=== PATIENT | female | born 1950 | race Caucasian/White ===

== ENCOUNTER → 2017-09-22 | Outpatient (CLI) | payer MEDICARE ==
[~2017-09-22] MED LIST: AMLO5TAB2 PO; BISO10TA5 PO; COMMODE 3-IN-11 MIS; ESLI1TAB4 PO; HYDR-3580 PO; LEVA500T33 PO; LEVE500T8 PO; MULT-65 PO; OMEP20TA93 PO; RAMI10CA PO; SIMV20TA PO; WALKER WHEELS/F1 MIS; XARE10TA PO
[2017-09-22 09:07] LABS: AUTOMATED NEUTROPHIL # 1.5 TH/MM3 (1.8-7.7); BASOPHIL % 0.7 % (0.0-2.0); EOSINOPHIL # 0.1 TH/MM3 (0-0.4); EOSINOPHIL % 1.3 % (0.0-4.0); HEMATOCRIT 37.2 % (35.0-46.0); HEMO FLAGS DIFF FINAL; LYMPH % 48.1 % (9.0-44.0); LYMPHOCYTE # 1.8 TH/MM3 (1.0-4.8); MEAN CELL VOLUME 107.8 FL (80.0-100.0); MEAN CORPUSCULAR HEMOGLOBIN 37.8 PG (27.0-34.0); MEAN CORPUSCULAR HGB CONC 35.1 % (32.0-36.0); MONO % 10.6 % (0.0-8.0); NEUT % 39.3 % (16.0-70.0); PLATELET COUNT 211 TH/MM3 (150-450); RED BLOOD COUNT 3.45 MIL/MM3 (4.00-5.30); RED CELL DISTRIBUTION WIDTH 12.8 % (11.6-17.2); WHITE BLOOD COUNT 3.8 TH/MM3 (4.0-11.0)
[2017-09-22 09:17] LABS: APTT (PATIENT) 24.3 SEC (24.3-30.1); INTERNATIONAL NORMALIZED RATIO 0.9 RATIO; PROTHROMBIN TIME - PATIENT 10.1 SEC (9.8-11.6)
[2017-09-22 09:53] LABS: BICARBONATE 24.9 MEQ/L (21.0-32.0)
[2017-09-22 10:01] LABS: POTASSIUM 4.7 MEQ/L (3.5-5.1)
[2017-09-22 10:54] LABS: BLOOD, URINE NEG (NEG); GLUCOSE,URINE NEG (NEG); KETONE, URINE NEG (NEG); NITRITE,URINE NEG (NEG); URINE COLOR LIGHT-YELLOW (YELLW/STRAW)
[2017-09-22 10:55] LABS: COMMENT (UR) CATH-CULT NOT IND; CULTURE IF INDICATED CATH CULTURE NOT IND
== END ==
LOC: CPRE 08:36
PROVIDERS: ATTEND Orthopaedic Surgery Orthopaedic Surgery of the Spine
DX: Z01.812 Encounter for preprocedural laboratory examination (principal); Z79.01 Long term (current) use of anticoagulants; M16.11 Unilateral primary osteoarthritis, right hip
CPT/HCPCS: 36415; 80048; 81001; 85025; 85610; 85730

== ENCOUNTER 2017-10-03 05:36 | Inpatient (IN) | payer MEDICARE ==
[~2017-10-03] VITALS: Ht 163.8 cm; Wt 76.8 kg
[~2017-10-03 05:36] MED LIST changes: -COMMODE 3-IN-11 MIS; -HYDR-3580 PO; -MULT-65 PO; -WALKER WHEELS/F1 MIS; -XARE10TA PO
[2017-10-03] MEDS ORDERED: METOPROLOL TARTRATE 25 MG TAB PO PRN (06:00)
[2017-10-03] MEDS ORDERED: POVIDONE IODINE 5% (ANTISEPSIS KIT) 4 APPLICATIONS EACH NARE PRN (06:00)
[2017-10-03] MEDS ORDERED: SODIUM CHLORID 0.9% 500 ML IV PRN (06:00)
[2017-10-03] MEDS ORDERED: LACTATED RINGER'S 1000 ML IV PRN (06:00)
[2017-10-03] MEDS ORDERED: CHLORHEXIDINE GLUCONATE 2 % 1 PACK (2 CLOTHS) TOPICAL PRN (06:00)
[2017-10-03] MEDS ORDERED: GENTAMICIN SULFATE 80 MG/2 ML VIAL ONE (06:09)
[2017-10-03] MEDS ORDERED: POVIDONE IODINE 7.5% SCRUB 118 ML BOTTLE TOPICAL SCH (06:15)
[2017-10-03] MEDS ORDERED: MULT-65 PO (06:15)
[2017-10-03] MEDS: VANCOMYCIN 1000 MG/NS 250 ML (for <70 kg) IV SCH ×4 (06:31→07:00)
[2017-10-03] MEDS: ceFAZolin 2 GM PREMIX 50 ML IV SCH ×2 (07:30→07:53)
[2017-10-03] MEDS: TRANEXAMIC ACID INJ 768 MG in SODIUM CHLORIDE 0.9% INJ 100 ML IV SCH ×2 (07:42→07:53)
[2017-10-03] MEDS: EXPAREL PERI-ARTICULAR INJECTION (TOTAL VOL. 60 ML) P-ARTICULR SCH ×4 (07:53→08:00)
--- NOTE | 2017-10-03 09:29 | PD.OP ---
cc: Jordan Aragon MD Operative Report Date of Surgery: Oct 03, 2017 Preoperative Diagnosis: Osteoarthritis right hip Postoperative Diagnosis: Same Procedure: Right total hip replacement arthroplasty, direct anterior exposure Anesthesia: Gen. Surgeon: Jordan Aragon Driver License Agent(s): CHINO Gandara Operation and Findings: EBL: 300 cc INDICATION: This patient presents with significant hip pain related to osteoarthritis of the right hip. Despite extensive conservative care this patient continues to be painful and now presents for surgical treatment. NOTE: Sita Gandara PA-C was present for the entire surgical procedure as my nutrition services assistant. In my medical opinion her skill and care was necessary for the proper management of this patient. COMPONENTS: COMPANY: [employer] CUP: [place], 56 mm, 100 series, gription surface LINER: Altrx 36, neutral STEM: [place], size 11, standard offset, hydroxyapatite-coated HEAD: 36, -2, metal, 12/14 taper PROCEDURE: This patient was brought to the operating room and anesthetized in the supine position and positioned on the fracture table with both legs held extended. The right hip and leg was scrubbed with alcohol followed by Hibiclens followed by ChloraPrep and draped sterilely. Antibiotics were given within routine time window and a timeout was done. A 4 inch incision was made starting 2 cm distal and 2 cm lateral to the anterior superior iliac spine. The fascia sebastian was opened longitudinally. The interval between the fascia sebastian and the rectus was opened down to the capsule of the hip joint. Retractors were positioned allowing good visualization of the capsule. This was opened longitudinally and flaps were created. Stay sutures were utilized. Exposure was excellent. The neck was cut at the proper location using fluoroscopy as a guide. The head was removed. Deep retractors were positioned allowing good visualization of the acetabulum. Acetabulum was deepened down to the floor starting with a proper size reamer and reaming up to 55 mm. A trial was utilized. Fluoroscopy was used to check position and confirmed satisfactory alignment. The rim was reamed with a 56 mm reamer and the final cup was positioned in approximately 20 of anteversion and 40-45 of abduction. Position was satisfactory. A single hole eliminator was positioned followed by the final liner. The lifting hook was utilized. The leg was dropped to the floor, maximally externally rotated and brought across the midline. Retractors were positioned. A box osteotome was utilized followed by progressive broaching to the proper stem size. Trial reduction showed excellent alignment and fit. With 60 of external rotation the leg was dropped to the floor without evidence of anterior subluxation. The wound was irrigated. The final stem was inserted and was found to be very stable. The final reduction using the final head. Stability was as previously noted. Intraoperative x-rays were taken. The wound was irrigated copiously. Hemostasis was controlled. Local anesthesia was utilized. The capsule was repaired with #2 Tycron sutures. The fascia sebastian was repaired with running 0 PDS on a loop. Subcutaneous tissue was approximated with 2-0 Vicryl and skin with running intradermal 3-0 Vicryl followed by Steri-Strips. A sterile dressing was applied. The patient was awakened and taken to the recovery room in satisfactory condition. FINDINGS: There was severe osteoarthritis of the right hip. There was a loose body within the acetabulum. The canal was a champagne flute type canal. We reamed distally with a flexible reamer to 11 mm allowing the size 11 stem to be placed in the proper location. Stability appeared to be excellent. There was no complication that was appreciated. Jordan Aragon MD Oct 03, 2017 09:29
[2017-10-03] MEDS ORDERED: ACETAMINOPHEN/HYDROcodone 325 MG/7.5 MG TAB PO PRN (09:30)
[2017-10-03] MEDS ORDERED: MISCELLANEOUS NURSING INFORMATION XX PRN (09:30)
[2017-10-03] MEDS ORDERED: SODIUM CHLORIDE 0.9% FLUSH 5 ML FLUSH IVF PRN (09:30)
[2017-10-03] MEDS ORDERED: Post-op Orders (for Pharmacy) MISC XX ONE (09:30)
[2017-10-03] MEDS ORDERED: MORPHINE SULFATE 8 MG/ML INJ IM PRN (09:30)
[2017-10-03] MEDS ORDERED: MORPHINE SULFATE 30 MG/30 ML PCA IV SCH (09:30)
[2017-10-03] MEDS ORDERED: NALOXONE HCL 0.4 MG/ML AMP IV PUSH PRN (09:30)
[2017-10-03] MEDS ORDERED: MISCELLANEOUS PHARMACY INFORMATION XX ONE (09:30)
[2017-10-03] MEDS ORDERED: HYDR-3580 PO (09:31)
[2017-10-03] MEDS ORDERED: XARE10TA PO (09:31)
[2017-10-03] MEDS ORDERED: DO NOT ADM ANY ANTICOAGULANT DRUGS PRN (09:33)
[2017-10-03] MEDS: LACTATED RINGER'S 1000 ML INJ 1,000 ML IV SCH (09:55)
[2017-10-03 12:00] VITALS: BP 129/66; PULSE 68; RESP 16; TEMP 96.6; O2SAT 100
[2017-10-03 15:45] VITALS: BP 94/60; PULSE 79; RESP 15; TEMP 97.5; O2SAT 100
[2017-10-03] MEDS: PCA - TOTAL MG MORPHINE DELIVERED PER SHIFT SCH ×2 (16:00→22:00)
--- NOTE | 2017-10-03 16:37 | RADRPT ---
EXAM DATE/TIME: 10/03/2017 07:59 [facility] COMPARISON: No previous studies available for comparison. INDICATIONS : Right anterior hip replacement. MEDICAL HISTORY : Hypertension. Gastroesophageal reflux disease. SURGICAL HISTORY : Hysterectomy. Left middle lobectomy. ENCOUNTER: Initial ACUITY: 1 day PAIN SCORE: Non-responsive. LOCATION: Right anterior hip. FINDINGS: A two view examination of the right hip was performed. The patient had a right total hip arthroplasty in good position.. CONCLUSION: Status post right total hip arthroplasty Keny David MD on October 03, 2017 at 16:35 Board Certified Radiologist. This report was verified electronically.
[2017-10-03 19:05] VITALS: BP 101/60; PULSE 71; RESP 16; TEMP 96.9; O2SAT 100
[2017-10-03 19:51] VITALS: O2SAT 100
[2017-10-03] MEDS ORDERED: WALKER WHEELS/F1 MIS (19:55)
[2017-10-03] MEDS ORDERED: COMMODE 3-IN-11 MIS (19:56)
--- NOTE | 2017-10-03 19:56 | HHI.DCPOC ---
Discharge Care Plan Diagnosis: (1) Osteoarthritis of right hip Your Health Problems Are: Incision/Drains Swelling Goals to Promote Your Health * To prevent worsening of your condition and complications * To maintain your health at the optimal level Directions to Meet Your Goals Take your medications as prescribed Follow your dietary instruction Follow activity as directed Keep your appointments as scheduled Take your immunizations and boosters as scheduled If your symptoms worsen call your PCP, if no PCP go to Urgent Care Center or Emergency Room Smoking is Dangerous to Your Health. Avoid second hand smoke Call the 24-hour hour crisis hotline for domestic abuse at Sita Gandara Oct 03, 2017 19:56
[2017-10-03] MEDS: amLODIPine BESYLATE 5 MG TAB PO SCH (19:57)
--- NOTE | 2017-10-03 19:58 | HHI.FF ---
Face to Face Verification Diagnosis: (1) Osteoarthritis of right hip Physical Therapy Gait training, Safety evaluation, Transfer training, bed to chair Hip: Total hip, Protocol: Right, Progress to weight bearing Right LE Weight Bearing: WB as tolerated Additional Instructions PT 4 days/wk for 2 weeks. WBAT RLE. Right JOANNE, anterior protocol. Gait training. Nursing RN Days per Week: 2 x Week(s): 1 Dressing Changes: Do not change dressing Additional Instructions Vitals assessment. Dressing assessment - do not change unless saturated or erythema I have seen patient Elisabeth Trujillo on 10/03/17. My clinical findings support the need for the requested home health care services because: Limited ability to care for self High risk of falls I certify that my clinical findings support that this patient is homebound because: Post-op weakness Unsteady gait/balance Sita Gandara Oct 03, 2017 19:58
--- NOTE | 2017-10-03 19:59 | HHI.DS ---
Discharge Summary Admission Date Oct 03, 2017 at 05:36 Discharge Date: Oct 06, 2017 Admitting Diagnosis see below Diagnosis: (1) Osteoarthritis of right hip Diagnosis: Principal ICD Codes: M16.11 - Unilateral primary osteoarthritis, right hip Procedures Right total hip arthroplasty, direct anterior approach Brief History This is a 67 year old female patient with a long-standing history of right hip pain for 8-10 years. She had 2 intra-articular steroid injections 7-8 years ago. The first was very helpful but the second wore off quickly. It was proposed she pursue surgical treatment at that time but she declined. She continue with conservative care including ice, heat, use of ibuprofen and biofreeze. Updated imaging studies were performed earlier this year as her function was declining. She attempted use of prescription diclofenac and physical therapy but her relief was short-lived. Surgical treatment was recommended in the form of right total hip arthroplasty. She agreed and now presents for the above. Hospital Course Surgical treatment was performed on the day of admission without complication. She recovered well in PACU and was transferred to the orthopaedic floor. Pain was controlled with IV and oral medications. DVT prophylaxis was initiated pod# 1. She was compliant with physical therapy and all JOANNE precautions. After 3 days she was found to be medically stable and discharged home with home health care. She was instructed to pursue a high fiber diet, to continue her therapy, to take her prescription medications as directed. She was given xarelto 10mg and Ruth 7.5mg. Pt Condition on Discharge: Stable Discharge Disposition: Disch w/ Home Health Serv Discharge Instructions Diet Instructions: As Tolerated, No Restrictions, High Fiber Diet Activities You Can Perform: Weight Bearing as [place]ima Activities to Avoid: Strenuous Activity Additional Activity Instruc.: Right JOANNE, direct anterior approach New Medications: Commode 3-in-1 (Commode 3-in-1) 1 Mis Mis EA .ROUTE DIRECTED, #1 0 Refills Walker with Front Wheels (Walker with Front Wheels) 1 Mis Mis EA .ROUTE DIRECTED, #1 0 Refills Hydrocodone/Acetaminophen (Hydrocodone-Acetamin 7.5-325) 7.5 Mg-325 Mg Tablet 1 TAB PO Q4H PRN for PAIN, #50 TAB Rivaroxaban (Xarelto) 10 Mg Tab 10 MG PO Q24H for Prevent Blood Clot, #25 TAB Continued Medications: Amlodipine (Amlodipine) 5 Mg Tab 5 MG PO HS for Blood Pressure Management, #30 TAB 0 Refills Bisoprolol (Bisoprolol) 10 Mg Tab 10 MG PO DAILY for Blood Pressure Management, #30 TAB 0 Refills Eslicarbazepine (Aptiom) 800 Mg Tab 800 MG PO DAILY for Control Seizures, #30 TAB 0 Refills Levetiracetam (Levetiracetam) 500 Mg Tab 1000 MG PO BID for Control Seizures, #60 TAB 0 Refills Levofloxacin (Levaquin) 500 Mg Tablet 500 MG PO DAILY for Infection, TAB 0 Refills Multiple Vitamin (Multi-Vitamin Daily) 1 Tab Tab 1 TAB PO DAILY for Nutritional Supplement, TAB 0 Refills Omeprazole (Omeprazole) 20 Mg Tab 20 MG PO DAILY, #30 TAB 0 Refills Ramipril (Ramipril) 10 Mg Cap 10 MG PO HS, #30 CAP 0 Refills Ramipril (Ramipril) 10 Mg Cap 10 MG PO PRN for SBP>160, DBP>90, #30 CAP 0 Refills Simvastatin (Simvastatin) 20 Mg Tab 30 MG PO HS for Cholesterol Management, #30 TAB 0 Refills Sita Gandara Oct 03, 2017 19:59
[2017-10-03] MEDS: PRAVASTATIN SOD 80 MG TAB PO SCH (20:04)
[2017-10-03] MEDS: RAMIPRIL 5 MG CAP PO SCH (20:04)
[2017-10-03] MEDS: levETIRAcetam 500 MG TAB PO SCH (20:04)
[2017-10-03] MEDS: MAGNESIUM HYDROXIDE SUSP 30 ML CUP PO SCH (20:04)
[2017-10-03] MEDS: SODIUM CHLORIDE 0.9% FLUSH 5 ML FLUSH IVF SCH (20:04)
[2017-10-03] MEDS: SENNOSIDES 8.6 MG TAB PO SCH (20:04)
[2017-10-04] VITALS (8 sets, daily range): BP systolic 90–121; BP diastolic 58–66; PULSE 80–108; RESP 17–20; TEMP 97.6–98.9; O2SAT 95–97
[2017-10-04 05:34] LABS: HEMATOCRIT 26.6 % (35.0-46.0); REVIEW FLAG FINAL
[2017-10-04] MEDS: LACTATED RINGER'S 1000 ML INJ 1,000 ML IV SCH ×3 (05:50→22:00)
[2017-10-04] MEDS: PCA - TOTAL MG MORPHINE DELIVERED PER SHIFT SCH (06:00)
[2017-10-04] MEDS: RIVAROXABAN 10 MG TAB PO SCH (08:30)
[2017-10-04] MEDS ORDERED: APTIOM 800 MG PO SCH (09:00)
[2017-10-04] MEDS ORDERED: BISOPROLOL 10 MG PO SCH (09:00)
[2017-10-04] MEDS: PANTOPRAZOLE SOD 20 MG DELAYED RELEASE TAB PO SCH (09:00)
[2017-10-04] MEDS: MAGNESIUM HYDROXIDE SUSP 30 ML CUP PO SCH ×2 (09:00→21:50)
[2017-10-04] MEDS: SODIUM CHLORIDE 0.9% FLUSH 5 ML FLUSH IVF SCH ×2 (09:00→21:00)
[2017-10-04] MEDS: levETIRAcetam 500 MG TAB PO SCH ×2 (09:00→21:50)
[2017-10-04] MEDS: ACETAMINOPHEN/HYDROcodone 325 MG/7.5 MG TAB PO PRN ×3 (10:50→21:56)
--- NOTE | 2017-10-04 12:44 | PD.ORT.PN ---
Subjective Subjective Remarks Moderate pain. Decreased blood pressure when on IV morphine. Lying in bed, comfortable. at bedside Objective Vitals Vital Signs Date Time Temp Pulse Resp B/P (MAP) Pulse Ox O2 Delivery O2 Flow Rate FiO2 10/04/17 11:49 98.8 108 18 109/66 (80) 97 10/04/17 08:19 95 Nasal Cannula 2.00 10/04/17 07:39 98.6 81 18 90/66 (74) 96 10/04/17 06:00 18 10/04/17 03:54 98.6 80 20 105/62 (76) 96 10/04/17 00:28 97.6 82 19 105/64 (78) 96 10/03/17 22:00 17 10/03/17 19:51 100 10/03/17 19:05 96.9 71 16 101/60 (74) 100 10/03/17 15:45 97.5 79 15 94/60 (71) 100 I/O 10/03/17 10/03/17 10/03/17 10/04/17 10/04/17 10/04/17 07:00 15:00 23:00 07:00 15:00 23:00 Intake Total 1586 ml 520 ml Output Total 3650 ml 400 ml Balance -2064 ml 120 ml Intake Oral 420 ml IV Total 1586 ml 100 ml Output Urine Total 450 ml 400 ml Estimated Blood Loss 200 ml Other 3000 ml # Bowel Movements 0 Result Diagram: 10/04/17 0445 Procedures Right total hip arthroplasty, direct anterior approach Objective Remarks Moderate pain with range of motion. Dressing is dry. Mild swelling. tenderness. Negative Homans sign Assessment & Plan Problem List: (1) Osteoarthritis of right hip ICD Codes: M16.11 - Unilateral primary osteoarthritis, right hip Qualifiers: Qualified Codes: M16.11 - Unilateral primary osteoarthritis, right hip Assessment and Plan Osteoarthritis right hip. Right JOANNE, direct anterior: POD #1. Plan: Weightbearing as tolerated. No dressing change. Xarelto for 25 days. [place] for pain. Discontinue PERSONAL FINANCIAL COUNSELOR. Probable discharge to home on . Prescriptions written. Home healthcare /home PT. 3007 form filled out in case she has to go to SNF. Jordan Aragon MD Oct 04, 2017 12:44
[2017-10-04] MEDS: RAMIPRIL 5 MG CAP PO SCH (21:00)
[2017-10-04] MEDS: amLODIPine BESYLATE 5 MG TAB PO SCH (21:00)
[2017-10-04] MEDS: PRAVASTATIN SOD 80 MG TAB PO SCH (21:50)
[2017-10-04] MEDS: SENNOSIDES 8.6 MG TAB PO SCH (21:50)
[2017-10-05] VITALS (7 sets, daily range): BP systolic 91–130; BP diastolic 60–79; PULSE 83–97; RESP 16–18; TEMP 98.5–100; O2SAT 93–98
[2017-10-05] MEDS: ACETAMINOPHEN/HYDROcodone 325 MG/7.5 MG TAB PO PRN ×5 (05:00→23:18)
[2017-10-05] MEDS: levETIRAcetam 500 MG TAB PO SCH ×2 (08:03→19:45)
[2017-10-05] MEDS: MAGNESIUM HYDROXIDE SUSP 30 ML CUP PO SCH ×2 (08:03→19:47)
[2017-10-05] MEDS: RIVAROXABAN 10 MG TAB PO SCH (08:03)
[2017-10-05] MEDS: PANTOPRAZOLE SOD 20 MG DELAYED RELEASE TAB PO SCH (08:03)
[2017-10-05] MEDS: SODIUM CHLORIDE 0.9% FLUSH 5 ML FLUSH IVF SCH ×2 (08:04→19:47)
--- NOTE | 2017-10-05 09:57 | PD.ORT.PN ---
Subjective Subjective Remarks no CP/SOB. no issues. Participating in PT Objective Vitals Vital Signs Date Time Temp Pulse Resp B/P (MAP) Pulse Ox O2 Delivery O2 Flow Rate FiO2 10/05/17 04:00 100.0 83 18 124/60 (81) 98 10/04/17 23:50 98.2 89 17 117/66 (83) 95 10/04/17 19:17 98.9 83 17 115/58 (77) 97 10/04/17 16:23 16 10/04/17 15:52 98.7 106 18 121/61 (81) 96 10/04/17 11:49 98.8 108 18 109/66 (80) 97 I/O 10/04/17 10/04/17 10/04/17 10/05/17 10/05/17 10/05/17 07:00 15:00 23:00 07:00 15:00 23:00 Intake Total 520 ml 360 ml 360 ml Output Total 400 ml Balance 120 ml 360 ml 360 ml Intake Oral 420 ml 360 ml 360 ml IV Total 100 ml Output Urine Total 400 ml # Voids 1 1 # Bowel Movements 0 0 0 Result Diagram: 10/04/17 0445 Procedures Right total hip arthroplasty, direct anterior approach Objective Remarks Moderate pain with range of motion. Dressing is dry. Mild swelling. tenderness. Negative Homans sign Assessment & Plan Problem List: (1) Osteoarthritis of right hip ICD Codes: M16.11 - Unilateral primary osteoarthritis, right hip Qualifiers: Qualified Codes: M16.11 - Unilateral primary osteoarthritis, right hip Assessment and Plan Osteoarthritis right hip. Right JOANNE, direct anterior: POD #2 doing well. up with PT Weightbearing as tolerated. No dressing change. Xarelto for 25 days. [place] for pain. Probable discharge to home on . Prescriptions written. Home healthcare /home PT. 3008 form filled out in case she has to go to SNF. Mauricio Stover Jr., MD Oct 05, 2017 09:57
[2017-10-05] MEDS: LACTATED RINGER'S 1000 ML INJ 1,000 ML IV SCH (12:00)
[2017-10-05] MEDS ORDERED: BISACODYL 10 MG SUPP RECTAL PRN (17:15)
[2017-10-05] MEDS: PRAVASTATIN SOD 80 MG TAB PO SCH (19:45)
[2017-10-05] MEDS: RAMIPRIL 5 MG CAP PO SCH (19:47)
[2017-10-05] MEDS: amLODIPine BESYLATE 5 MG TAB PO SCH (19:47)
[2017-10-05] MEDS: SENNOSIDES 8.6 MG TAB PO SCH (19:47)
[2017-10-06 00:02] VITALS: BP 122/69; PULSE 94; RESP 16; TEMP 99.7; O2SAT 97
[2017-10-06] MEDS: LACTATED RINGER'S 1000 ML INJ 1,000 ML IV SCH (00:30)
[2017-10-06] MEDS: ACETAMINOPHEN/HYDROcodone 325 MG/7.5 MG TAB PO PRN ×2 (05:08→09:00)
[2017-10-06 08:00] VITALS: BP 113/74; PULSE 86; RESP 18; TEMP 98.5; O2SAT 95
[2017-10-06] MEDS: MAGNESIUM HYDROXIDE SUSP 30 ML CUP PO SCH (09:00)
[2017-10-06] MEDS: SODIUM CHLORIDE 0.9% FLUSH 5 ML FLUSH IVF SCH (09:00)
[2017-10-06] MEDS: RIVAROXABAN 10 MG TAB PO SCH (09:01)
[2017-10-06] MEDS: PANTOPRAZOLE SOD 20 MG DELAYED RELEASE TAB PO SCH (09:01)
[2017-10-06] MEDS: levETIRAcetam 500 MG TAB PO SCH (09:01)
== END 2017-10-06 11:25 | disposition home health service (06) | DRG 470 ==
LOC: HSDI 05:36 → EDUNIT# 07:30 → N06B 11:16
PROVIDERS: ADMIT Orthopaedic Surgery Orthopaedic Surgery of the Spine; ATTEND Orthopaedic Surgery Orthopaedic Surgery of the Spine
PROC: 0SR902A Replacement of Right Hip Joint with Metal on Polyethylene Synthetic Substitute, Uncemented, Open Approach (ICD-10-PCS; principal; 2017-10-03 07:13)
DX: M16.11 Unilateral primary osteoarthritis, right hip (principal); I10 Essential (primary) hypertension; K21.9 Gastro-esophageal reflux disease without esophagitis; M81.0 Age-related osteoporosis without current pathological fracture; E78.5 Hyperlipidemia, unspecified; Z87.891 Personal history of nicotine dependence
CPT/HCPCS: 73502; 76000; 85014; 85018; 86850; 86900; 86901; 86920; 94150; C1776; C9290; J0690; J1580; J2270; J3370; J7050; J7120

== ENCOUNTER 2017-10-25 15:33 | Emergency (ER) | payer MEDICARE ==
[~2017-10-25 15:33] MED LIST changes: +COMMODE 3-IN-11 MIS; +HYDR-3580 PO; +MULT-65 PO; +WALKER WHEELS/F1 MIS; +XARE10TA PO
[2017-10-25 15:35] VITALS: BP 190/92; PULSE 102; RESP 22; TEMP 98.9; O2SAT 100
--- NOTE | 2017-10-25 16:03 | PD ---
HPI Chief Complaint: Musculoskeletal Complaint Time Seen by Provider: 16:00 Travel History International Travel<30 days: No Contact w/Intl Traveler<30days: No Traveled to known affect area: No History of Present Illness HPI 67 YO F with PMH of sacroiliitis and total hip replacement Oct [address] Li presents to the ED for evaluation of 10/10 pain over the sacral area. Patient describes the pain as the size of a tennis ball that radiates to the size of an orange. It is worsened by certain motions. She denies numbness, tingling, weakness, limitations to range of motion of the extremities, saddle anesthesia, fecal/urinary incontinence. She states that the pain became worse after a physical therapy session today. She's been treating with 10 mg [place] with no improvement of symptoms. 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) Thyroid Disease: No Past Surgical History Abdominal Surgery: Yes (hysterectomy) AICD: No Cardiac Surgery: No Ear Surgery: No Endocrine Surgery: No Eye Surgery: No Genitourinary Surgery: Yes (urethra stretch-frequent) Gynecologic Surgery: Yes (hysterectomy) Joint Replacement: No Oral Surgery: Yes (DENTAL IMPLANTS) Pacemaker: No Thoracic Surgery: Yes (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, bxs) Social History Tobacco Use: No Substance Use: No Allergies-Medications (Allergen,Severity, Reaction): Coded Allergies: bee venom protein (honey bee) (Verified Allergy, Severe, swelling, ) lacosamide (Verified Allergy, Severe, Shortness of Breath, 10/25/17) petechia and congestion lamotrigine (Verified Allergy, Severe, Shortness of Breath, 10/25/17) petechia and congestion Reported Meds & Prescriptions Reported Meds & Active Scripts Active Flexeril (Cyclobenzaprine HCl) 10 Mg Tab 10 Mg PO TID Xarelto (Rivaroxaban) 10 Mg Tab 10 Mg PO Q24H Reported Hydrocodone-Acetaminophen 10-325 mg Tab 1 Tab PO Q6H PRN Simvastatin 20 Mg Tab 20 Mg PO HS Levetiracetam 250 Mg Tab 250 Mg PO BID Bisoprolol (Bisoprolol Fumarate) 10 Mg Tab 10 Mg PO DAILY Aptiom (Eslicarbazepine) 800 Mg Tab 800 Mg PO DAILY Omeprazole 20 Mg Tab 20 Mg PO DAILY Review of Systems Except as stated in HPI: all other systems reviewed are Neg Physical Exam Narrative GENERAL: Well-nourished, well-developed white female in no acute distress. SKIN: Focused skin assessment warm/dry. HEAD: Normocephalic. EYES: No scleral icterus. No injection or drainage. NECK: Supple, trachea midline. No JVD or lymphadenopathy. CARDIOVASCULAR: Regular rate and rhythm without murmurs, gallops, or rubs. RESPIRATORY: Breath sounds equal bilaterally. No accessory muscle use. GASTROINTESTINAL: Abdomen soft, non-tender, nondistended. MUSCULOSKELETAL: No cyanosis, or edema. 5/5 strength of dorsiflexion, plantar flexion, knee and hip flexion bilaterally. Patient is able to bear weight and walks with a slow but steady gait. BACK: No obvious deformity. No CVA tenderness. Tender to palpation just right lateral of the SI joint. Data Data Last Documented VS Vital Signs Date Time Temp Pulse Resp B/P (MAP) Pulse Ox O2 Delivery O2 Flow Rate FiO2 10/25/17 18:17 10/25/17 15:35 98.9 102 22 100 Orders Orders Ketorolac Inj (Toradol Inj) (10/25/17 16:30) Orphenadrine Inj (Norflex Inj) (10/25/17 16:30) Sacrum And Coccyx (10/25/17 ) Ed Discharge Order (10/25/17 17:51) [facility] Medical Decision Making Medical Screen Exam Complete: Yes Emergency Medical Condition: Yes Differential Diagnosis Sacroiliitis versus osteoarthritis versus musculoskeletal pain versus other Narrative Course 67 YO F with PMH of sacroiliitis and total hip replacement Oct [address] Li presents to the ED for evaluation of 10/10 pain over the sacral area. Patient describes the pain as the size of a tennis ball that radiates to the size of an orange. It is worsened by certain motions. She denies numbness, tingling, weakness, limitations to range of motion of the extremities, saddle anesthesia, fecal/urinary incontinence. She states that the pain became worse after a physical therapy session today. Vitals reviewed. Physical exam reveals tenderness to palpation in the sacral area, particularly on the right. Patient has 5/5 strength in the bilateral lower extremities and is able to weight-bear and walk with a slow but normal gait. She was administered IM Toradol and Norflex. X-ray reveals sacroiliac arthropathy. On recheck the patient reports improvement of her symptoms. She is provided a short course of muscle relaxants. She is instructed to continue with narcotic pain medications as previously prescribed. I recommended that she speak with the orthopedist regarding her physical therapy. She should be undergoing some physical therapy for her sacroiliitis as well. The patient's agreeable with this plan. She indicated understanding of instructions. She is stable and discharged home. Diagnosis Primary Impression: Sacroiliac joint pain Referrals: Orthopaedic Surgeon Patient Instructions: General Instructions, Sacroiliitis (ED) Additional Instructions: Rest, hydrate. Ice or heat applied to the area of pain may help to reduce her symptoms. Apply ice no longer than 10-15 minutes per hour a few times a day. Continue with at home pain medications. Take muscle relaxants as prescribed. Do not drive with taking muscle relaxants. Return to normal, gentle activity as tolerated. No running, jumping activities for the next few weeks. Follow up with orthopedist. Return to the ED for any urgent or emergent medical condition. Med/Other Pt SpecificInfo: Prescription(s) given Scripts Cyclobenzaprine (Flexeril) 10 Mg Tab 10 MG PO TID for Muscle Spasm, #15 TAB 0 Refills Prov: Rylie Macario DO 10/25/17 Disposition: 01 DISCHARGE HOME Condition: Stable Meghan Ramon Oct 25, 2017 16:02
[2017-10-25] MEDS ORDERED: SIMV20TA PO (16:15)
[2017-10-25] MEDS ORDERED: HYDR-3583 PO (16:15)
[2017-10-25] MEDS ORDERED: LEVE250T5 PO (16:15)
[2017-10-25] MEDS ORDERED: ORPHENADRINE INJ 60 MG/2 ML AMP IM ONE (16:30)
[2017-10-25] MEDS ORDERED: KETOROLAC TROMETHAMINE 60 MG/2 ML (IM) VIAL IM ONE (16:30)
--- NOTE | 2017-10-25 17:30 | RADRPT ---
EXAM DATE/TIME: 10/25/2017 17:04 [facility] COMPARISON: No previous studies available for comparison. INDICATIONS : Sacral pain with no known injury. MEDICAL HISTORY : Previous fractured sacrum, 3 herniated lumbar discs. SURGICAL HISTORY : Hip replacement. ENCOUNTER: Initial ACUITY: 1 day PAIN SCORE: 8/10 LOCATION: Bilateral coccyx region. FINDINGS: Two-view examination of the sacrum and coccyx demonstrates no evidence of fracture or malalignment. The sacral ala and foramina appear symmetric and intact. The coccyx appears unremarkable. The preve rtebral soft tissues are within normal limits. Mild to moderate arthropathy is identified in the sacroiliac joints. There are mild changes of the ri ght and moderate changes on the left. CONCLUSION: 1. Mild/moderate sacroiliac arthropathy 2. No evidence of acute bony abnormality. Daniel Narayan MD on October 25, 2017 at 17:27 Board Certified Radiologist. This report was verified electronically.
[2017-10-25] MEDS ORDERED: CYCL10TA PO (17:50)
== END 2017-10-25 18:18 | disposition home or self-care (01) ==
LOC: NEPK 15:33
DX: M53.3 Sacrococcygeal disorders, not elsewhere classified (principal); M19.90 Unspecified osteoarthritis, unspecified site; Z79.899 Other long term (current) drug therapy; Z88.8 Allergy status to other drugs, medicaments and biological substances
CPT/HCPCS: 72220; 96372; 99284; J1885; J2360

== ENCOUNTER 2017-12-20 11:06 | Emergency (ER) | payer MEDICARE ==
[~2017-12-20] VITALS: Ht 162.6 cm; Wt 73.5 kg
[~2017-12-20 11:06] MED LIST changes: -AMLO5TAB2 PO; -COMMODE 3-IN-11 MIS; +CYCL10TA PO; -HYDR-3580 PO; +HYDR-3583 PO; -LEVA500T33 PO; +LEVE250T5 PO; -LEVE500T8 PO; -MULT-65 PO; -RAMI10CA PO; -WALKER WHEELS/F1 MIS
[2017-12-20 11:08] VITALS: BP 202/91; PULSE 73; RESP 16; TEMP 99.2; O2SAT 97
[2017-12-20 11:56] LABS: AUTOMATED NEUTROPHIL # 7.6 TH/MM3 (1.8-7.7); BASOPHIL % 0.2 % (0.0-2.0); HEMOGLOBIN 13.3 GM/DL (11.6-15.3); LYMPH % 11.2 % (9.0-44.0); MEAN CELL VOLUME 99.6 FL (80.0-100.0); MEAN CORPUSCULAR HEMOGLOBIN 34.9 PG (27.0-34.0); MEAN CORPUSCULAR HGB CONC 35.1 % (32.0-36.0); MONO % 5.1 % (0.0-8.0); MONOCYTE # 0.5 TH/MM3 (0-0.9); NEUT % 83.5 % (16.0-70.0); PLATELET COUNT 260 TH/MM3 (150-450); RED BLOOD COUNT 3.81 MIL/MM3 (4.00-5.30); RED CELL DISTRIBUTION WIDTH 13.7 % (11.6-17.2); WHITE BLOOD COUNT 9.1 TH/MM3 (4.0-11.0)
[2017-12-20 12:05] LABS: PROTHROMBIN TIME - PATIENT 10.2 SEC (9.8-11.6)
[2017-12-20 12:14] VITALS: BP 186/85; PULSE 68; RESP 20; O2SAT 100
[2017-12-20 12:14] LABS: BACTERIA, URINE MANY /hpf; BILIRUBIN, URINE NEG (NEG); BLOOD, URINE NEG (NEG); GLUCOSE,URINE NEG (NEG); KETONE, URINE TRACE mg/dL (NEG); MUCUS URINE MANY /lpf (OCC); NITRITE,URINE POS (NEG); SQUAMOUS EPITHELIAL CELL URINE 18 /hpf (0-5); URINE COLOR YELLOW (YELLW/STRAW); URINE LEUKOCYTE ESTERASE LARGE (NEG)
--- NOTE | 2017-12-20 12:14 | PD ---
HPI Chief Complaint: Pain: Acute or Chronic Time Seen by Provider: 12:07 Travel History International Travel<30 days: No Contact w/Intl Traveler<30days: No Traveled to known affect area: No History of Present Illness HPI 67 YO F with PMH of sacroilitis, HTN presents to the ED for evaluation of 04/22 low back pain after receiving steroid injections in the SI joint yesterday. She states that immediately after the injection her blood pressure "skyrocketed " and she had increased spasming in the lower back. EMS was called to the scene but patient refused transport. Today she complains of low-grade fever, nausea, continued spasming type back pain. She denies chest pain, palpitations , shortness of breath, abdominal pain, vomiting, dysuria, urinary/fecal incontinence, saddle anesthesia, weakness of the lower extremities. She endorses history of chronic UTI, last treated with Levaquin at [facility]. She is not currently taking any muscle relaxants. 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) Thyroid Disease: No Past Surgical History Abdominal Surgery: Yes (hysterectomy) AICD: No Cardiac Surgery: No Ear Surgery: No Endocrine Surgery: No Eye Surgery: No Genitourinary Surgery: Yes (urethra stretch-frequent) Gynecologic Surgery: Yes (hysterectomy) Joint Replacement: No Oral Surgery: Yes (DENTAL IMPLANTS) Pacemaker: No Thoracic Surgery: Yes (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, bxs) Social History Tobacco Use: No Substance Use: No Allergies-Medications (Allergen,Severity, Reaction): Coded Allergies: bee venom protein (honey bee) (Verified Allergy, Severe, swelling, ) lacosamide (Verified Allergy, Severe, Shortness of Breath, 10/25/17) petechia and congestion lamotrigine (Verified Allergy, Severe, Shortness of Breath, 10/25/17) petechia and congestion Reported Meds & Prescriptions Reported Meds & Active Scripts Active Flexeril (Cyclobenzaprine HCl) 10 Mg Tab 10 Mg PO TID Cipro (Ciprofloxacin HCl) 250 Mg Tab 250 Mg PO BID 5 Days Reported Norvasc (Amlodipine Besylate) 5 Mg Tab 5 Mg PO DAILY Ramipril 10 Mg Cap 10 Mg PO HS Simvastatin 20 Mg Tab 20 Mg PO HS Levetiracetam 250 Mg Tab 250 Mg PO BID Bisoprolol (Bisoprolol Fumarate) 10 Mg Tab 10 Mg PO DAILY Aptiom (Eslicarbazepine) 800 Mg Tab 800 Mg PO DAILY Omeprazole 20 Mg Tab 20 Mg PO DAILY Review of Systems Except as stated in HPI: all other systems reviewed are Neg Physical Exam Narrative GENERAL: Well-nourished, well-developed anxious white female in NAD. SKIN: Focused skin assessment warm/dry. HEAD: Normocephalic. EYES: No scleral icterus. No injection or drainage. NECK: Supple, trachea midline. No JVD or lymphadenopathy. CARDIOVASCULAR: Regular rate and rhythm without murmurs, gallops, or rubs. RESPIRATORY: Breath sounds clear and equal bilaterally. No accessory muscle use. GASTROINTESTINAL: Abdomen soft, non-tender, nondistended. Active bowel sounds. MUSCULOSKELETAL: No cyanosis, or edema. 5/5 strength of plantar flexion, dorsiflexion, knee and hip flexion bilaterally. BACK: Nontender without obvious deformity. No CVA tenderness. Data Data Last Documented VS Vital Signs Date Time Temp Pulse Resp B/P (MAP) Pulse Ox O2 Delivery O2 Flow Rate FiO2 12/20/17 14:17 12/20/17 13:56 98.5 65 20 100 Room Air Orders Orders Complete Blood Count With Diff (12/20/17 11:21) Comprehensive Metabolic Panel (12/20/17 11:21) Westergren Sedimentation Rate (12/20/17 11:21) C-Reactive Protein (Crp) (12/20/17 11:21) Act Partial Throm Time (Ptt) (12/20/17 11:21) Prothrombin Time / Inr (Pt) (12/20/17 11:21) Urinalysis - C+S If Indicated (12/20/17 11:21) Sacrum And Coccyx (12/20/17 ) Iv Access Insert/Monitor (12/20/17 12:11) Sodium Chlorid 0.9% 500 Ml Inj (Ns 500 M (12/20/17 12:15) Urine Culture (12/20/17 11:40) ^ Insert Iv (12/20/17 12:48) Sodium Chlorid 0.9% 500 Ml Inj (Ns 500 M (12/20/17 13:00) Ketorolac Inj (Toradol Inj) (12/20/17 13:00) Cyclobenzaprine (Flexeril) (12/20/17 13:00) Acetaminophen (Tylenol) (12/20/17 13:00) Ciprofloxacin 400 Mg Premix (Cipro 400 M (12/20/17 13:00) Ed Discharge Order (12/20/17 13:34) Labs Laboratory Tests Test 12/20/17 11:33 12/20/17 11:40 White Blood Count 9.1 TH/MM3 Red Blood Count 3.81 MIL/MM3 Hemoglobin 13.3 GM/DL Hematocrit 38.0 % Mean Corpuscular Volume 99.6 FL Mean Corpuscular Hemoglobin 34.9 PG Mean Corpuscular Hemoglobin Concent 35.1 % Red Cell Distribution Width 13.7 % Platelet Count 260 TH/MM3 Mean Platelet Volume 7.0 FL Neutrophils (%) (Auto) 83.5 % Lymphocytes (%) (Auto) 11.2 % Monocytes (%) (Auto) 5.1 % Eosinophils (%) (Auto) 0.0 % Basophils (%) (Auto) 0.2 % Neutrophils # (Auto) 7.6 TH/MM3 Lymphocytes # (Auto) 1.0 TH/MM3 Monocytes # (Auto) 0.5 TH/MM3 Eosinophils # (Auto) 0.0 TH/MM3 Basophils # (Auto) 0.0 TH/MM3 CBC Comment DIFF FINAL Differential Comment Erythrocyte Sedimentation Rate 14 mm/hr Prothrombin Time 10.2 SEC Prothromb Time International Ratio 1.0 RATIO Activated Partial Thromboplast Time 24.3 SEC Blood Urea Nitrogen 24 MG/DL Creatinine 0.84 MG/DL Random Glucose 114 MG/DL Total Protein 7.3 GM/DL Albumin 4.1 GM/DL Calcium Level 9.4 MG/DL Alkaline Phosphatase 87 U/L Aspartate Amino Transf (AST/SGOT) 24 U/L Alanine Aminotransferase (ALT/SGPT) 26 U/L Total Bilirubin 0.6 MG/DL Sodium Level 131 MEQ/L Potassium Level 3.9 MEQ/L Chloride Level 99 MEQ/L Carbon Dioxide Level 23.1 MEQ/L Anion Gap 9 MEQ/L Estimat Glomerular Filtration Rate 67 ML/MIN C-Reactive Protein LESS THAN 0.29 MG/DL Urine Color YELLOW Urine Turbidity HAZY Urine pH 6.0 Urine Specific [place] 1.036 Urine Protein 30 mg/dL Urine Glucose (UA) NEG mg/dL Urine Ketones TRACE mg/dL Urine Occult Blood NEG Urine Nitrite POS Urine Bilirubin NEG Urine Urobilinogen 2.0 MG/DL Urine Leukocyte Esterase LARGE Urine RBC 1 /hpf Urine WBC 28 /hpf Urine Squamous Epithelial Cells 18 /hpf Urine Bacteria MANY /hpf Urine Mucus MANY /lpf Microscopic Urinalysis Comment CULTURE INDICATED MDM Medical Decision Making Medical Screen Exam Complete: Yes Emergency Medical Condition: Yes Differential Diagnosis SI joint disfunction versus musculoskeletal pain versus muscle spasm versus UTI versus other Narrative Course 57-year-old female PMH of sacroiliitis, hypertension, chronic UTI presents to the ED for evaluation of 6/10 low back pain. Onset after receiving steroid injections in the SI joint yesterday. She endorses low-grade fever, nausea, continuing spasming type lower central back pain. 99.2. Pulse 73, BP 202/91 on presentation. On physical exam the patient is nontoxic appearing. Chest CTA B. Abdomen soft and nontender. She does have tenderness to palpation over the SI joint but 5/5 strength in the lower extremities. Patient is very anxious appearing. CBC: No concerning abnormalities Coags: INR 1.0. CMP: No concerning abnormalities UA: Hazy, trace ketones, nitrite positive, large leukocyte Estrace, 28 wbc's, many bacteria, many mucus. Culture indicated Sacrum coccyx x-ray: No acute findings IV was established. Patient was administered 0.5 L saline, 15 mg Toradol, 200 mL Cipro IV and 500 mg Tylenol and 10 mg Flexeril by mouth. On recheck patient states pain is improved. BP improved to 156/85. The patient's prescribed a short course of Flexeril and 5 day course of Cipro by mouth. She is instructed to return to normal, gentle activity as tolerated, continue at-home medications , follow with the primary care orthopedist. She is stable and discharged home. Diagnosis Primary Impression: Sacroiliac dysfunction Additional Impression: Urinary tract infection Qualified Codes: N39.0 - Urinary tract infection, site not specified Referrals: Orthopedist Primary Care Physician Patient Instructions: Chronic Back Pain (ED), General Instructions, Urinary Tract Infection in Women (ED) Additional Instructions: Rest, hydrate. Return to normal, gentle activity as tolerated. Take every dose of antibiotic until they are all gone. Follow up with the orthopedist and primary care provider. Return to the ED for any urgent or emergent medical condition. Med/Other Pt SpecificInfo: Prescription(s) given Scripts Cyclobenzaprine (Flexeril) 10 Mg Tab 10 MG PO TID for Muscle Spasm, #15 TAB 0 Refills Prov: Sita Brand MD 12/20/17 Ciprofloxacin (Cipro) 250 Mg Tab 250 MG PO BID for Infection for 5 Days, #10 TAB 0 Refills Prov: Sita Brand MD 12/20/17 Disposition: 01 DISCHARGE HOME Condition: Stable Meghan Ramon Dec 20, 2017 12:14
[2017-12-20] MEDS ORDERED: SODIUM CHLORID 0.9% 500 ML INJ 500 ML IV ONE ×2 (12:15→13:00)
[2017-12-20 12:30] LABS: ALBUMIN 4.1 GM/DL (3.4-5.0); BICARBONATE 23.1 MEQ/L (21.0-32.0); BLOOD UREA NITROGEN 24 MG/DL (7-18); CALCIUM 9.4 MG/DL (8.5-10.1); CHLORIDE 99 MEQ/L (98-107); CREATININE 0.84 MG/DL (0.50-1.00); GLOMERULAR FILTRATION RATE 67 ML/MIN (>89); GLUCOSE,RANDOM 114 MG/DL (74-106); SODIUM (NA) 131 MEQ/L (136-145)
[2017-12-20 12:31] LABS: ALT (GPT) 26 U/L (10-53); AST (GOT) 24 U/L (15-37); C-REACTIVE PROTEIN LESS THAN 0.29 MG/DL (0.00-0.30)
[2017-12-20 12:34] LABS: ALKALINE PHOSPHATASE 87 U/L (45-117); TOTAL BILIRUBIN ADULT 0.6 MG/DL (0.2-1.0); TOTAL PROTEIN 7.3 GM/DL (6.4-8.2)
[2017-12-20] MEDS ORDERED: RAMI10CA PO (12:56)
[2017-12-20] MEDS ORDERED: AMLO5 PO (12:56)
[2017-12-20] MEDS ORDERED: CYCLOBENZAPRINE HCL 10 MG TAB PO ONE (13:00)
[2017-12-20] MEDS ORDERED: ACETAMINOPHEN 500 MG CPLT PO ONE (13:00)
[2017-12-20] MEDS ORDERED: KETOROLAC TROMETHAMINE 30 MG/ML (IVP) VIAL IV PUSH ONE (13:00)
[2017-12-20] MEDS ORDERED: CIPROFLOXACIN 400 MG PREMIX 200 ML IV ONE (13:00)
--- NOTE | 2017-12-20 13:12 | RADRPT ---
EXAM DATE/TIME: 12/20/2017 12:25 [facility] COMPARISON: SACRUM AND COCCYX, October 25, 2017, 17:04. INDICATIONS : Pain. MEDICAL HISTORY : Previous fractured sacrum, 3 herniated lumbar discs. SURGICAL HISTORY : Hip replacement. ENCOUNTER: Initial ACUITY: 1 day PAIN SCORE: 5/10 LOCATION: Sacrum / Coccyx FINDINGS: Two-view examination of the sacrum and coccyx demonstrates no evidence of fracture or malalignment. The sacral ala and foramina appear symmetric and intact. The coccyx appears unremarkable. The preve rtebral soft tissues are within normal limits. The lower coccygeal segments have a 90 angulation wit h the upper, similar in configuration to prior exam 10/25/17. CONCLUSION: No acute findings in the sacrum or coccyx. Gómez Green MD on December 20, 2017 at 13:08 Board Certified Radiologist. This report was verified electronically.
[2017-12-20] MEDS ORDERED: CYCL10TA PO (13:27)
[2017-12-20] MEDS ORDERED: CIPR250T52 PO (13:27)
[2017-12-20 13:56] VITALS: BP 156/85; PULSE 65; RESP 20; TEMP 98.5; O2SAT 100
== END 2017-12-20 14:19 | disposition home or self-care (01) ==
LOC: NEPE 11:06
DX: M54.5 Low back pain (principal); N39.0 Urinary tract infection, site not specified; B96.1 Klebsiella pneumoniae [K. pneumoniae] as the cause of diseases classified elsewhere; Z16.29 Resistance to other single specified antibiotic; G40.909 Epilepsy, unspecified, not intractable, without status epilepticus; I10 Essential (primary) hypertension; I48.91 Unspecified atrial fibrillation
CPT/HCPCS: 72220; 80053; 81001; 85025; 85610; 85652; 85730; 86140; 87086; 96365; 96375; 99284; J0744; J1885; J7040

== ENCOUNTER 2018-08-14 21:34 | Observation (INO) ==
--- NOTE | 2018-08-14 22:12 | ED ---
HPI General Chief complaint: Head Injury Stated complaint: Head injury Source: patient Mode of arrival: ambulatory Limitations: no limitations History of Present Illness HPI Narrative: 68-year-old female presents to the emergency department by private transportation the care of her spouse for evaluation of syncopal episode with head injury. According to the patient just prior to arrival to the emergency department she was in her home taking her evening medications felt dizzy and then found herself on the floor. Patient states she has soft tissue swelling to the posterior occiput and also bruised the front of her forehead on the right side. Patient is unaware of duration of loss of consciousness but believes it was brief and did not have any tongue trauma or incontinence. Patient does have a history of epilepsy but denies having a seizure. Patient states she when she awakened she identified that she was on the floor did not have a postictal state. Patient was able to get up on her own and call her to come and bring her to the hospital. Patient also has a service dog for epilepsy. Dog was with her. Patient does not have prior history of syncope. Patient was not experiencing any chest pain or shortness of breath nausea vomiting abdominal pain flank pain or other so. Currently patient continues to have dizziness some fuzziness of vision but no diplopia denies any upper extremity lower extremity numbness tingling or weakness or ataxia of gait. Patient has mild confusion but just as to what occurred states she does not appear confused has no facial droop and has no change in her feet with which the patient agrees. Patient's had no recent febrile illness. Patient takes no blood thinning agents. Patient reports that she and her did just return from a [address] trip from [place] and she just underwent urethral dilation and has been taking Cipro. Complaint: head injury Onset (ago): hour(s) Arrival Conditions: other (Arrives by private vehicle) Mechanism of Injury: other (Syncopal episode) Place: home Loss of Consciousness: yes and second(s) Location of injury: frontal and occipital Severity: moderate Quality: dull and aching Radiation: none Other Injuries: upper extremity (Left shoulder) Context: on warfarin (Denies) and other anticoagulant use (Denies) Associated symptoms: confusion (Briefly due to having syncopal episode but no states she is where she is and what occurred.), vision changes (Feels mildly blurry but no loss of vision and no double vision), nausea and syncope Related Data Home Medications Medication Instructions Recorded Confirmed amlodipine 5 mg PO HS 08/14/18 08/14/18 bisoprolol fumarate 10 mg PO DAILY 08/14/18 08/14/18 ciprofloxacin HCl [Cipro] 500 mg PO BID 08/14/18 08/14/18 eslicarbazepine [Aptiom] 800 mg PO DAILY 08/14/18 08/14/18 levetiracetam 1,000 mg PO BID 08/14/18 08/14/18 multivitamin 1 cap PO QAM 08/14/18 08/14/18 omeprazole 20 mg PO DAILY 08/14/18 08/14/18 ramipril 10 mg PO HS 08/14/18 08/14/18 simvastatin 40 mg PO QPM 08/14/18 08/14/18 Allergies Allergy/AdvReac Type Severity Reaction Status Date / Time bee venom protein (honey bee) Allergy Severe swelling Verified 08/14/18 22:10 lacosamide Allergy Severe Shortness Verified 08/14/18 22:10 of Breath lamotrigine Allergy Severe Shortness Verified 08/14/18 22:10 of Breath Review of Systems ROS: all other systems reviewed are negative PMFSH Medical History Medical History History of Mycobacterium avium complex infection (Acute) History of epilepsy (Acute) History of hypertension (Acute) History of hysterectomy (Acute) Surgical History Surgical History History of lung surgery (Acute) History of right hip replacement (Acute) Social History Social History Substance History: No History of Abuse Second Hand Smoke Exposure: No Smoking Status: Former smoker How Often Do You Have a Drink Containing Alcohol: 4 or more times a week Recent Travel in [facility] within the Last 8 Weeks: No Recent Out of Country Travel within the Last 8 Weeks: No Immunization History Tetanus Immunization: <5 Years Hx Influenza Vaccine This Season: No Exam Narrative Exam Narrative: GENERAL: Well-developed well-nourished female in no acute distress no respiratory distress. GCS 15. SKIN: Focused skin assessment warm/dry. HEAD: Atraumatic. Normocephalic. Except for posterior occiput soft tissue swelling no abrasion no laceration no bony abnormality EYES: Pupils equal and round and reactive to light. No scleral icterus. No injection or drainage. No orbital rim bony tenderness to palpation no ecchymosis. ENT: No nasal bleeding or discharge. Mucous membranes pink and moist. Airway is patent no tongue trauma. No hemotympanum no postauricular ecchymosis. NECK: Trachea midline. No JVD. No midline tenderness to direct palpation along the cervical spine no bony step-off. CARDIOVASCULAR: Regular rate and rhythm. No murmur appreciated. RESPIRATORY: No accessory muscle use. Clear to auscultation. Breath sounds equal bilaterally. GASTROINTESTINAL: Abdomen soft, non-tender, nondistended. Hepatic and splenic margins not palpable. MUSCULOSKELETAL: No obvious deformities. No clubbing. No cyanosis. No edema. NEUROLOGICAL: Awake and alert. No obvious cranial nerve deficits. Motor grossly within normal limits. Normal speech. PSYCHIATRIC: Appropriate mood and affect; insight and judgment normal. Course Initial Documented Vital Signs Temperature 97.5 F L 08/14/18 21:36 Pulse Rate 73 08/14/18 21:36 Respiratory Rate 18 08/14/18 21:36 Blood Pressure 179/92 H 08/14/18 21:36 Pulse Oximetry 100 08/14/18 21:36 Last Documented Vital Signs Temperature 97.5 F L 08/14/18 21:36 Pulse Rate 68 08/15/18 00:03 Respiratory Rate 18 08/15/18 00:03 Blood Pressure 158/68 H 08/15/18 00:03 Pulse Oximetry 97 08/15/18 00:03 Medical Decision Making [facility] Narrative Medical decision making narrative: 68-year-old female presents to the emergency department for complaint of head pain status post syncopal episode unwitnessed denies having seizure. Patient reports compliance with medication. Patient reports she had successfully taken her evening medications prior to her syncopal event. Patient reports her seizures are petit mal and onyl twice has she had grand mal seizures. Denies tongue trauma or bladder or bowel incontinence. Patient denies being postictal. Lab values grossly in normal range acute process does show evidence of posterior occiput scalp hematoma CT cervical spine reveals no acute bony abnormality chronic changes are noted shoulder x-ray reveals no acute bony abnormality. EKG sinus rhythm rate [address] elevation interventricular conduction delay noted with borderline first-degree AV block artifact is present at baseline. Discussed with Dr rAagon --OBS, aware CTA pulmonary pending CTA pulmonary --negative for PE, multiple focal nodules inflammatory v infectious w h/o ANDIE --rec 3 month follow up; patient informed of imaging results and denies fever chills chest congestion hemoptysis weight loss; but has recently developed cough and night sweats; presently on Cipro. Is followed at [facility] in [place], [place] q 6 months. Admitting MD notified. Medical Screen Exam Complete: Yes Emergency Medical Condition: Yes Differential Diagnosis Differential Diagnosis: Syncope, seizure, arrhythmia, electrolyte disturbance, anemia, closed head injury, ICH, skull fracture, cervical spine sprain strain fracture, PE, ACS, WI, sirs/sepsis Medical Records Medical records reviewed: Yes I reviewed the patient's medical records. Lab Data Lab results reviewed: Yes I reviewed the patient's lab results. Result diagrams: 08/14/18 22:00 08/14/18 22:00 Lab Results 08/14/18 08/14/18 08/14/18 Range/Units 22:00 22:00 22:00 CBC w Diff Auto diff final WBC 5.8 (4.0-11.0) th/mm3 RBC 3.83 L (4.00-5.30) mil/mm3 Hgb 13.7 (11.6-15.3) gm/dL Hct 40.5 (35.0-46.0) % MCV 105.8 H (80.0-100.0) fL MCH 35.9 H (27.0-34.0) pg MCHC 33.9 (32.0-36.0) % RDW 11.6 (11.6-17.2) % Plt Count 237 (150-450) th/mm3 MPV 6.8 L (7.0-11.0) fL Neut % (Auto) 59.1 (16.0-70.0) % Lymph % (Auto) 30.1 (9.0-44.0) % [place] % (Auto) 8.2 H (0.0-8.0) % Eos % (Auto) 0.7 (0.0-4.0) % Baso % (Auto) 1.9 (0.0-2.0) % Neut # (Auto) 3.4 (1.8-7.7) th/mm3 Lymph # (Auto) 1.8 (1.0-4.8) th/mm3 [place] # (Auto) 0.5 (0.0-0.9) th/mm3 Eos # (Auto) 0.0 (0.0-0.4) th/mm3 Baso # (Auto) 0.1 (0.0-0.2) th/mm3 WBC Differential . Differential Comment . PT 10.0 (9.8-11.6) sec INR 1.0 Ratio APTT 23.8 L (24.3-30.1) sec D-Dimer Quant (PE/DVT) (0.00-0.50) mg/L FEU Sodium 133 L (136-145) meq/L Potassium 3.4 L (3.5-5.1) meq/L Chloride 98 (98-107) meq/L Carbon Dioxide 24.2 (21.0-32.0) meq/L Anion Gap 11 (5-15) meq/L BUN 16 (7-18) mg/dL Creatinine 0.85 (0.50-1.00) mg/dL Estimated GFR 66 L (>89) mL/min POC Glucose (68-110) mg/dl Random Glucose 93 (74-106) mg/dL Calcium 8.7 (8.5-10.1) mg/dL Magnesium 2.2 (1.5-2.5) mg/dL Total Bilirubin 0.5 (0.2-1.0) mg/dL AST 22 (15-37) U/L ALT 31 (10-53) U/L Alkaline Phosphatase 81 (45-117) U/L Troponin I Less than 0.02 L (0.02-0.05) ng/mL Total Protein 7.0 (6.4-8.2) g/dL Albumin 3.8 (3.4-5.0) g/dL 08/14/18 08/14/18 Range/Units 22:00 22:20 CBC w Diff WBC (4.0-11.0) th/mm3 RBC (4.00-5.30) mil/mm3 Hgb (11.6-15.3) gm/dL Hct (35.0-46.0) % MCV (80.0-100.0) fL MCH (27.0-34.0) pg MCHC (32.0-36.0) % RDW (11.6-17.2) % Plt Count (150-450) th/mm3 MPV (7.0-11.0) fL Neut % (Auto) (16.0-70.0) % Lymph % (Auto) (9.0-44.0) % [place] % (Auto) (0.0-8.0) % Eos % (Auto) (0.0-4.0) % Baso % (Auto) (0.0-2.0) % Neut # (Auto) (1.8-7.7) th/mm3 Lymph # (Auto) (1.0-4.8) th/mm3 [place] # (Auto) (0.0-0.9) th/mm3 Eos # (Auto) (0.0-0.4) th/mm3 Baso # (Auto) (0.0-0.2) th/mm3 WBC Differential Differential Comment PT (9.8-11.6) sec INR Ratio APTT (24.3-30.1) sec D-Dimer Quant (PE/DVT) 3.85 H (0.00-0.50) mg/L FEU Sodium (136-145) meq/L Potassium (3.5-5.1) meq/L Chloride (98-107) meq/L Carbon Dioxide (21.0-32.0) meq/L Anion Gap (5-15) meq/L BUN (7-18) mg/dL Creatinine (0.50-1.00) mg/dL Estimated GFR (>89) mL/min POC Glucose 97 (68-110) mg/dl Random Glucose (74-106) mg/dL Calcium (8.5-10.1) mg/dL Magnesium (1.5-2.5) mg/dL Total Bilirubin (0.2-1.0) mg/dL AST (15-37) U/L ALT (10-53) U/L Alkaline Phosphatase (45-117) U/L Troponin I (0.02-0.05) ng/mL Total Protein (6.4-8.2) g/dL Albumin (3.4-5.0) g/dL Imaging Data Radiologist's impression: Cervical Spine CT 08/14/18 22:04 CONCLUSION: 1. No acute fracture or subluxation. 2. Multilevel degenerative spondylosis and multilevel facet arthropathy. Head CT 08/14/18 22:04 CONCLUSION: 1. No bleed or other acute intracranial abnormality. 2. Left posterior parietal scalp hematoma. No fracture. . Shoulder X-Ray 08/14/18 22:05 CONCLUSION: Intact left shoulder. Chest CTA 08/15/18 00:01 CONCLUSION: 1. No CT evidence for pulmonary artery embolism as questioned. 2. Multiple focal nodular or nearly nodular parenchymal opacities bilaterally, as above. Suspect these are infectious/inflammatory in etiology and are consistent with history of ANDIE. Recommend follow-up examination in 3 months to document resolution/stability. ECG Data EKG Prior to Arrival: No Prior ECG tracings: not available for review Interpretation: EKG: Normal sinus rhythm rate 70, no acute ST elevation or injury pattern change noted, artifact is present at baseline Discharge Plan Discharge Disposition Patient Disposition: 30 Still Patient Discharge Condition Condition: Stable Discharge Details Diagnosis: Syncope Physicians Team ED Provider: Anisha Harmon Primary Care Provider: Toño Naqvi Attending Provider: Ryile Aragon Status ED Status: Admitted Observation Patient
[2018-08-14 22:14] LABS: Baso # (Auto) 0.1 th/mm3 (0.0-0.2); Baso % (Auto) 1.9 % (0.0-2.0); Eos % (Auto) 0.7 % (0.0-4.0); Hematocrit 40.5 % (35.0-46.0); Hemoglobin 13.7 gm/dL (11.6-15.3); Lymph # (Auto) 1.8 th/mm3 (1.0-4.8); Lymph % (Auto) 30.1 % (9.0-44.0); Mean Corpuscular HGB Conc 33.9 % (32.0-36.0); Mean Corpuscular Hemoglobin 35.9 pg (27.0-34.0); Mean Corpuscular Volume 105.8 fL (80.0-100.0); Mean Platelet Volume 6.8 fL (7.0-11.0); Mono # (Auto) 0.5 th/mm3 (0.0-0.9); Mono % (Auto) 8.2 % (0.0-8.0); Neut # (Auto) 3.4 th/mm3 (1.8-7.7); Neut % (Auto) 59.1 % (16.0-70.0); Platelet Count 237 th/mm3 (150-450); Red Blood Count 3.83 mil/mm3 (4.00-5.30); Red Cell Distribution Width 11.6 % (11.6-17.2); White Blood Count 5.8 th/mm3 (4.0-11.0)
[2018-08-14] MEDS ORDERED: Sod Chloride 0.9% Inj 1,000 ML IV.CONT SCH (22:15)
[2018-08-14 22:25] LABS: Activated Partial Thrombo Time 23.8 sec (24.3-30.1)
[2018-08-14 22:26] LABS: Chloride 98 meq/L (98-107); Potassium 3.4 meq/L (3.5-5.1); Sodium 133 meq/L (136-145)
[2018-08-14 22:29] LABS: Calcium 8.7 mg/dL (8.5-10.1)
[2018-08-14 22:30] LABS: Albumin 3.8 g/dL (3.4-5.0); Anion Gap 11 meq/L (5-15); Blood Urea Nitrogen 16 mg/dL (7-18); Carbon Dioxide 24.2 meq/L (21.0-32.0); Glucose,Random 93 mg/dL (74-106); Magnesium 2.2 mg/dL (1.5-2.5)
[2018-08-14 22:33] LABS: Alanine Aminotransferase 31 U/L (10-53); Aspartate Aminotransferase 22 U/L (15-37); Glomerular Filtration Rate 66 mL/min (>89)
[2018-08-14 22:36] LABS: Alkaline Phosphatase 81 U/L (45-117)
--- NOTE | 2018-08-14 22:46 | XR ---
EXAM DATE: 08/14/2018 10:05 PM EDT AGE/SEX: 68 years / Female INDICATIONS: Patient complains of left shoulder pain status post fall. CLINICAL DATA: This is the patient's initial encounter. Patient reports that signs and symptoms have been present for 1 day and indicates a pain score of 6/10. MEDICAL/SURGICAL HISTORY: None. None. COMPARISON: No prior exams available for comparison. FINDINGS: Bony structures are intact and in normal alignment. Joints are intact without dislocation or signifi cant arthropathy. Osseous density is normal. Soft tissues are unremarkable. No radiopaque foreign bodies seen. CONCLUSION: Intact left shoulder. Electronically signed by: Yayo Florez MD 08/14/2018 10:45 PM EDT
--- NOTE | 2018-08-14 23:00 | CT ---
EXAM DATE: 08/14/2018 10:14 PM EDT AGE/SEX: 68 years / Female INDICATIONS: Syncope. Hematoma occipital region of head. CLINICAL DATA: This is the patient's initial encounter. Patient reports that signs and symptoms have been present for 1 day and indicates a pain score of 8/10. MEDICAL/SURGICAL HISTORY: Hypertension. Epilepsy. None. RADIATION DOSE: 62.54 CTDI (mGy) COMPARISON: No prior exams available for comparison. TECHNIQUE: CT of the head without contrast. Using automated exposure control and adjustment of the mA and/or kV according to patient size, radiation dose was kept as low as reasonably achievable to ob tain optimal diagnostic quality images. DICOM format image data is available electronically for revi ew and comparison. FINDINGS: Cerebrum: The ventricles are normal for age. No evidence of midline shift, mass lesion, hemorrhage or acute infarction. No extraaxial fluid collections are seen. Posterior Fossa: The cerebellum and brainstem are intact. The 4th ventricle is midline. The cerebe llopontine angle is unremarkable. Extracranial: There is a left posterior parietal scalp hematoma. Skull: The calvaria is intact. No evidence of skull fracture. CONCLUSION: 1. No bleed or other acute intracranial abnormality. 2. Left posterior parietal scalp hematoma. No fracture. . Electronically signed by: Yayo Florez MD 08/14/2018 10:58 PM EDT
--- NOTE | 2018-08-14 23:11 | CT ---
EXAM DATE: 08/14/2018 10:14 PM EDT AGE/SEX: 68 years / Female INDICATIONS: Syncope. Fall. CLINICAL DATA: This is the patient's initial encounter. Patient reports that signs and symptoms have been present for 1 day and indicates a pain score of 8/10. MEDICAL/SURGICAL HISTORY: Hypertension. Epilepsy. None. RADIATION DOSE: 26.54 CTDI (mGy) COMPARISON: No prior exams available for comparison. TECHNIQUE: Contiguous axial images were obtained using helical multirow detector technique. The vol umetric data was post-processed with multiplanar reconstruction in oblique axial, sagittal, and coron al planes. Using automated exposure control and adjustment of the mA and/or kV according to patient s ize, radiation dose was kept as low as reasonably achievable to obtain optimal diagnostic quality tico ges. DICOM format image data is available electronically for review and comparison. FINDINGS: OSSEOUS STRUCTURES: Vertebral body heights are maintained. Osseous structures are intact without evid ence for acute bony fracture. Dens is intact. ALIGNMENT: Sagittal alignment is maintained. There is a normal C1-2 relationship. Facets are normal ly aligned. SOFT TISSUES: There is no significant prevertebral soft tissue hematoma. No significant cervical elisabet nopathy or gross mass. The thyroid appears unremarkable. Prominent carotid artery calcifications.Vis ualized lung apices are clear without pneumothorax. ADDITIONAL FINDINGS: Multilevel degenerative spondylosis of the lower cervical spine most prominently at C5-6. Multilevel facet arthropathy most prominently at C3-4 on the left and C4-5 on the right. Ángel ny central canal is patent. Bony neural foramina are patent. CONCLUSION: 1. No acute fracture or subluxation. 2. Multilevel degenerative spondylosis and multilevel facet arthropathy. Electronically signed by: Espinoza Crisostomo MD 08/14/2018 11:10 PM EDT
[2018-08-14] MEDS ORDERED: Acetaminophen 325 MG Tablet PO ONE (23:26)
--- NOTE | 2018-08-15 00:47 | CT ---
EXAM DATE: 08/15/2018 12:01 AM EDT AGE/SEX: 68 years / Female INDICATIONS: Evaluate for embolism. CLINICAL DATA: This is the patient's initial encounter. Patient reports that signs and symptoms have been present for 1 day and indicates a pain score of 2/10. MEDICAL/SURGICAL HISTORY: Hypertension. Mycobacterium avium complex infection. None. RADIATION DOSE: 12.58 CTDI (mGy) COMPARISON: No prior exams available for comparison. TECHNIQUE: Volumetric scanning was performed using a multi-row detector CT scanner during bolus infu eb of 75 ml Omnipaque 350 (iohexol) nonionic water-soluble contrast as a single exam dose. The shirlene a was post processed with a variety of visualization algorithms including full volume maximum intensi ty projection and sliding thin slab reformation. Using automated exposure control and adjustment of the mA and/or kV according to patient size, radiation dose was kept as low as reasonably achievable t o obtain optimal diagnostic quality images. DICOM format image data is available electronically for review and comparison. FINDINGS: Pulmonary Arteries: No filling defects are seen in the pulmonary arteries through the segmental vess els. The main pulmonary artery is normal in diameter. Lun mm nodule in the right upper lobe with adjacent groundglass opacities. Focal airspace consol idation in the inferior right upper lobe anteriorly abutting the minor fissure. Linear parenchymal op acities in the inferior right middle lobe. Ill-defined nearly nodular focal opacity in the left upper lobe abutting the fissure measuring approximately 8 mm. Focal nearly nodular subpleural airspace dis ease at the right lung base measuring 9 mm. Focal nodular groundglass opacity in the left upper lobe posteriorly Minimal measuring 5 mm. groundglass opacities at the left lung base. Pleura: No effusion, significant pleural thickening or pneumothorax. Mediastinum: Heart is unremarkable without pericardial effusion. Several subcentimeter right hilar n odes. No significant adenopathy. Osseous Structures: No abnormal focal lytic or blastic bony lesions. Other: Visulaized upper abdomen is unremarkable. CONCLUSION: 1. No CT evidence for pulmonary artery embolism as questioned. 2. Multiple focal nodular or nearly nodular parenchymal opacities bilaterally, as above. Suspect the se are infectious/inflammatory in etiology and are consistent with history of ANDIE. Recommend follow-u p examination in 3 months to document resolution/stability. Electronically signed by: Espinoza Crisostomo MD 08/15/2018 12:45 AM EDT
[2018-08-15 01:08] LABS: Bilirubin,Urine Negative (Negative); Clarity,Urine Clear (Clear); Color,Urine Yellow (Yellw/Straw); Glucose,Urine (UA) Negative (Negative); Leukocyte Esterase,Urine Negative (Negative); Nitrite,Urine Negative (Negative); PH,Urine 7.5 (5.0-8.5); Urobilinogen,Urine 0.2 mg/dL (Less than 2)
[2018-08-15 01:15] LABS: RBC,Urine 0-3 /hpf (0-3); Squamous Epithelial Cell,Urine 0-5 /hpf (0-5); WBC,Urine 0-5 /hpf (0-5)
[2018-08-15] MEDS ORDERED: Senna/Docusate Sodium 8.6/50 MG Tablet PO PRN (04:55)
[2018-08-15] MEDS ORDERED: Aluminum/Magnesium/Simethacone Susp 30 ML UDC PO PRN (04:55)
[2018-08-15] MEDS ORDERED: Docusate Sodium 100 MG Capsule PO PRN (04:55)
[2018-08-15 07:38] LABS: Calcium 7.8 mg/dL (8.5-10.1); Carbon Dioxide 23.6 meq/L (21.0-32.0); Potassium 4.2 meq/L (3.5-5.1)
--- NOTE | 2018-08-15 07:48 | P.HP ---
History of Present Illness Primary Care Physician: Toño Naqvi MD Chief Complaint: Syncope History of Present Illness: This is a pleasant 68-year-old female patient with a known medical history of hypertension, history of seizures, hyperlipidemia, GERD and Mycobacterium avium complex infection who presented to the ED status post syncopal episode at home. Patient states that yesterday she was at home alone her was out with his friends and she had gotten up out of the chair after reading and as she was getting a glass of water at the refrigerator she felt dizzy and later found herself on the floor. Patient does state she lost consciousness as well as hitting her head on the granite countertop, she is unaware of the duration of time she was unconscious. She does state that she hit the back of her head as well as the front of her forehead. She admits to a history of epilepsy, states she has not had a seizure for over 2 years now. Is therapeutic on Keppra, follows with a doctor in [place] for her seizures. Patient denies any incontinence of stool or urine after syncopal episode. She does admit that she is fallen at least once a month for the past 6 months, she states that usually she passes out after having blurry vision and dizziness as well as instability on her feet. It should be noted that patient did undergo a right hip replacement last September and since that time patient has been having trouble with ambulation as well as weakness and pain in the right hip area. Patient also does have a history of Mycobacterium avium complex infection, follows with a doctor in [place], she just recently returned from a [address] trip with her . She also follows with Dr. Alberto, urology and yesterday underwent a urethral dilation. Patient denies any recent illness including fever, chills, cough, shortness of breath, dumping, nausea, vomiting, diarrhea or dysuria. She does admit to compliance with her medications. She does admit to a history of orthostatic hypotension, she is very aware of getting up slowly from her chair and from sitting position. Denies any new changes to her medicines. Does admit to some confusion yesterday which has resolved upon assessment today. She does admit that her vision is continue to be blurry but has improved slightly. - Diagnosis (1) Syncope (2) History of epilepsy (3) Mycobacterium avium complex (4) Hypertension (5) Hyperlipidemia (6) GERD (gastroesophageal reflux disease) Review of Systems All other systems reviewed negative except as stated in HPI PMFSH - History History Provided By: Patient - Medical History Medical History: Medical History (Last Reviewed 08/15/18 @ 10:06 by Sita Wang) History of Mycobacterium avium complex infection History of epilepsy History of hypertension History of hysterectomy - Surgical History Surgical History: Surgical History (Last Reviewed 08/15/18 @ 10:06 by Sita Wang) History of lung surgery History of right hip replacement - Family History Family History: Family History (Last Updated 08/15/18 @ 10:54 by Sita Wang) Other Family history in first degree relatives is unremarkable - Tobacco History Second Hand Smoke Exposure: No Tobacco Use In Past 30 Days: No Smoking Status: Never smoker - Alcohol History How Often Do You Have a Drink Containing Alcohol: Never - Substance Use History Substance History: No History of Abuse - Travel History Recent Travel in the [place] Within the Last 8 Weeks: No Recent Travel Out of the Country Within the Last 8 Weeks: No - Immunization History Tetanus Immunization: <5 Years Hx Influenza Vaccine This Season: No Medications and Allergies Active Medications: Active Medications Acetaminophen (Tylenol) 650 mg PO Q4H PRN PRN Reason: Temp > 100.4 Al Hydrox/Mg Hydrox/Simethicone (Mag-Al Plus Susp Liq) 30 ml PO Q6H PRN PRN Reason: DYSPEPSIA Al Hydroxide/Mg Hydroxide (Milk Of Magnesia Liq) 30 ml PO DAILY PRN PRN Reason: SEVERE CONSITIPATION Calcium Carbonate (Tums Chew) 1,000 mg CHEW TID PRN PRN Reason: DYSPEPSIA Ciprofloxacin HCl (Cipro) 500 mg PO BID MINDY Docusate Sodium (Colace) 100 mg PO BID PRN PRN Reason: CONSTIPATION Sodium Chloride (Ns Inj) 1,000 mls @ 70 mls/hr IV.CONT .[id number] [facility] Stop: 08/15/18 12:32 Last Infusion: 08/15/18 06:41 Dose: 70 mls/hr Levetiracetam (Keppra) 1,000 mg PO BID [facility] Ondansetron HCl (Zofran Inj) 4 mg IV.PUSH Q6H PRN PRN Reason: NAUSEA Pantoprazole Sodium (Protonix) 20 mg PO DAILY [facility] Pravastatin Sodium (Pravachol) 80 mg PO QPM MINDY Senna/Docusate Sodium (Prudence-Colace) 1 tab PO BID PRN PRN Reason: CONSTIPATION Allergies Allergy/AdvReac Type Severity Reaction Status Date / Time bee venom protein (honey bee) Allergy Severe swelling Verified 08/14/18 22:10 lacosamide Allergy Severe Shortness Verified 08/14/18 22:10 of Breath lamotrigine Allergy Severe Shortness Verified 08/14/18 22:10 of Breath Home Medications Medication Instructions Recorded Confirmed Type amlodipine 5 mg PO HS 08/14/18 08/14/18 History bisoprolol fumarate 10 mg PO DAILY 08/14/18 08/14/18 History ciprofloxacin HCl [Cipro] 500 mg PO BID 08/14/18 08/14/18 History eslicarbazepine [Aptiom] 800 mg PO DAILY 08/14/18 08/14/18 History levetiracetam 1,000 mg PO BID 08/14/18 08/14/18 History multivitamin 1 cap PO QAM 08/14/18 08/14/18 History omeprazole 20 mg PO DAILY 08/14/18 08/14/18 History ramipril 10 mg PO HS 08/14/18 08/14/18 History simvastatin 40 mg PO QPM 08/14/18 08/14/18 History Exam Vital signs: Vital Signs 08/14/18 21:36 08/14/18 21:53 08/14/18 22:18 Temperature 97.5 F L Pulse Rate 73 69 68 Respiratory Rate 18 18 Blood Pressure 179/92 H 173/92 H Pulse Oximetry 100 98 08/14/18 22:19 08/14/18 22:30 08/15/18 00:03 Temperature Pulse Rate 70 68 Respiratory Rate 18 18 Blood Pressure 168/89 H 158/68 H Pulse Oximetry 98 97 97 08/15/18 00:52 08/15/18 00:53 08/15/18 01:42 Temperature 97.9 F Pulse Rate 73 81 Respiratory Rate 18 18 20 Blood Pressure 150/89 H 142/72 H Pulse Oximetry 95 08/15/18 02:20 08/15/18 04:00 Temperature 98.4 F Pulse Rate 73 Respiratory Rate 20 Blood Pressure 111/59 L Pulse Oximetry 95 98 Intake & Output 1008/15/18 08/15/18 18:59 06:59 18:59 Intake Total 240 / 240 Balance 240 / 240 Weight 73.3 kg Intake: IV 0 / 0 NS Inj 1,000 ML @ 70 mls/hr IV. 0 / 0 CONT .[id number] MINDY Rx#: [id number] Oral 240 / 240 Other: # Voids 2 Narrative: GENERAL: Well-developed, well-nourished patient in NAD. SKIN: Warm and dry. No rash. HEAD: Normocephalic. Atraumatic. Posterior occipital area with tenderness and mild swelling. Right temporal area tender to palpation. No swelling or hematoma noted. EYES: Pupils equal and round. No scleral icterus. No injection or drainage. ENT: No nasal bleeding or discharge. Mucous membranes pink and moist. NECK: Supple. Trachea midline. CARDIOVASCULAR: Regular rate and rhythm. S1, S2 noted. No murmur appreciated. RESPIRATORY: No accessory muscle use. Clear to auscultation. Breath sounds equal bilaterally. GASTROINTESTINAL: Abdomen soft, non-tender, nondistended. Normoactive bowel sounds x4. MUSCULOSKELETAL: No obvious deformities. Extremities without clubbing, cyanosis , or edema. NEUROLOGICAL: Awake and alert. No obvious cranial nerve deficits. Motor grossly within normal limits. 5/5 muscle strength in bilateral upper and lower extremities. Normal speech. PSYCHIATRIC: Appropriate mood and affect; insight and judgment normal. Results - Labs CBC & Chem 7: 08/14/18 22:00 08/15/18 05:15 Labs: Laboratory Results - last 24 hr 08/14/18 08/14/18 08/14/18 22:00 22:00 22:00 CBC w Diff Auto diff final WBC 5.8 RBC 3.83 L Hgb 13.7 Hct 40.5 MCV 105.8 H MCH 35.9 H MCHC 33.9 RDW 11.6 Plt Count 237 MPV 6.8 L Neut % (Auto) 59.1 Lymph % (Auto) 30.1 [place] % (Auto) 8.2 H Eos % (Auto) 0.7 Baso % (Auto) 1.9 Neut # (Auto) 3.4 Lymph # (Auto) 1.8 [place] # (Auto) 0.5 Eos # (Auto) 0.0 Baso # (Auto) 0.1 WBC Differential . Differential Comment . PT 10.0 INR 1.0 APTT 23.8 L D-Dimer Quant (PE/DVT) Sodium 133 L Potassium 3.4 L Chloride 98 Carbon Dioxide 24.2 Anion Gap 11 BUN 16 Creatinine 0.85 Estimated GFR 66 L POC Glucose Random Glucose 93 Calcium 8.7 Magnesium 2.2 Total Bilirubin 0.5 AST 22 ALT 31 Alkaline Phosphatase 81 Troponin I Less than 0.02 L Total Protein 7.0 Albumin 3.8 Urine Color Urine Clarity Urine pH Ur Specific [place] Urine Protein Urine Glucose (UA) Urine Ketones Urine Occult Blood Urine Nitrate Urine Bilirubin Urine Urobilinogen Ur Leukocyte Esterase Urine RBC Urine WBC Ur Squamous Epith Cells Micro UA Comment Ur Microscopic Review Urine Culture Comments 08/14/18 08/14/18 08/15/18 22:00 22:20 00:40 CBC w Diff WBC RBC Hgb Hct MCV MCH MCHC RDW Plt Count MPV Neut % (Auto) Lymph % (Auto) [place] % (Auto) Eos % (Auto) Baso % (Auto) Neut # (Auto) Lymph # (Auto) [place] # (Auto) Eos # (Auto) Baso # (Auto) WBC Differential Differential Comment PT INR APTT D-Dimer Quant (PE/DVT) 3.85 H Sodium Potassium Chloride Carbon Dioxide Anion Gap BUN Creatinine Estimated GFR POC Glucose 97 Random Glucose Calcium Magnesium Total Bilirubin AST ALT Alkaline Phosphatase Troponin I Total Protein Albumin Urine Color Yellow Urine Clarity Clear Urine pH 7.5 Ur Specific [place] 1.010 Urine Protein Negative Urine Glucose (UA) Negative Urine Ketones Trace H Urine Occult Blood Negative Urine Nitrate Negative Urine Bilirubin Negative Urine Urobilinogen 0.2 Ur Leukocyte Esterase Negative Urine RBC 0-3 Urine WBC 0-5 Ur Squamous Epith Cells 0-5 Micro UA Comment Culture not ind Ur Microscopic Review Microscopic reviewed Urine Culture Comments Culture not ind 08/15/18 05:15 CBC w Diff WBC RBC Hgb Hct MCV MCH MCHC RDW Plt Count MPV Neut % (Auto) Lymph % (Auto) [place] % (Auto) Eos % (Auto) Baso % (Auto) Neut # (Auto) Lymph # (Auto) [place] # (Auto) Eos # (Auto) Baso # (Auto) WBC Differential Differential Comment PT INR APTT D-Dimer Quant (PE/DVT) Sodium 136 Potassium 4.2 D Chloride 103 Carbon Dioxide 23.6 Anion Gap 9 BUN 12 Creatinine 0.70 Estimated GFR 83 L POC Glucose Random Glucose 97 Calcium 7.8 L D Magnesium Total Bilirubin AST ALT Alkaline Phosphatase Troponin I Total Protein Albumin Urine Color Urine Clarity Urine pH Ur Specific [place] Urine Protein Urine Glucose (UA) Urine Ketones Urine Occult Blood Urine Nitrate Urine Bilirubin Urine Urobilinogen Ur Leukocyte Esterase Urine RBC Urine WBC Ur Squamous Epith Cells Micro UA Comment Ur Microscopic Review Urine Culture Comments - Imaging Impressions Cervical Spine CT 08/14/18 22:04 CONCLUSION: 1. No acute fracture or subluxation. 2. Multilevel degenerative spondylosis and multilevel facet arthropathy. Head CT 08/14/18 22:04 CONCLUSION: 1. No bleed or other acute intracranial abnormality. 2. Left posterior parietal scalp hematoma. No fracture. . Shoulder X-Ray 08/14/18 22:05 CONCLUSION: Intact left shoulder. Chest CTA 08/15/18 00:01 CONCLUSION: 1. No CT evidence for pulmonary artery embolism as questioned. 2. Multiple focal nodular or nearly nodular parenchymal opacities bilaterally, as above. Suspect these are infectious/inflammatory in etiology and are consistent with history of ANDIE. Recommend follow-up examination in 3 months to document resolution/stability. Caprini VTE Risk Assessment Caprini VTE Risk Assessment: Moderate/High Risk (score >= 2) Caprini Risk Assessment Model: Point Value = 1 Point Value = 2 Point Value = 3 Point Value = 5 Age 41-60 Minor surgery BMI > 25 kg/m2 Swollen legs Varicose veins or History of unexplained or recurrent spontaneous Oral contraceptives or hormone replacement Sepsis (< 1 month) Serious lung disease, including pneumonia (< 1 month) Abnormal pulmonary function Acute myocardial infarction Congestive heart failure (< 1 month) History of inflammatory bowel disease Medical patient at bed rest Age 61-74 Arthroscopic surgery Major open surgery (> 45 min) Laparoscopic surgery (> 45 min) Malignancy Confined to bed (> 72 hours) Immobilizing plaster cast Central venous access Age >= 75 History of VTE Family history of VTE Factor V Leiden Prothrombin [id number] Lupus anticoagulant Anticardiolipin antibodies Elevated serum homocysteine Heparin-induced thrombocytopenia Other congenital or acquired thrombophilia Stroke (< 1 month) Elective arthroplasty Hip, pelvis, or leg fracture Acute spinal cord injury (< 1 month) Prophylaxis Regimen: Total Risk Factor Score Risk Level Prophylaxis Regimen 0-1 Low Early ambulation 2 Moderate Order ONE of the following: *Sequential Compression Device (SCD) *Heparin 5000 units SQ BID 3-4 Higher Order ONE of the following medications: *Heparin 5000 units SQ TID *Enoxaparin/Lovenox 40 mg SQ daily (WT < 150 kg, CrCl > 30 mL/min) *Enoxaparin/Lovenox 30 mg SQ daily (WT < 150 kg, CrCl > 10-29 mL/min) *Enoxaparin/Lovenox 30 mg SQ BID (WT < 150 kg, CrCl > 30 mL/min) AND/OR *Sequential Compression Device (SCD) 5 or more Highest Order ONE of the following medications: *Heparin 5000 units SQ TID (Preferred with Epidurals) *Enoxaparin/Lovenox 40 mg SQ daily (WT < 150 kg, CrCl > 30 mL/min) *Enoxaparin/Lovenox 30 mg SQ daily (WT < 150 kg, CrCl > 10-29 mL/min) *Enoxaparin/Lovenox 30 mg SQ BID (WT < 150 kg, CrCl > 30 mL/min) AND *Sequential Compression Device (SCD) Assessment and Plan - Assessment (1) Syncope Code(s): R55 - Syncope and collapse Status: Acute (2) History of epilepsy Code(s): Z86.69 - Personal history of other diseases of the nervous system and sense organs Status: Acute (3) Mycobacterium avium complex Code(s): A31.0 - Pulmonary mycobacterial infection Status: Acute (4) Hypertension Code(s): I10 - Essential (primary) hypertension Status: Acute (5) Hyperlipidemia Code(s): E78.5 - Hyperlipidemia, unspecified Status: Acute (6) GERD (gastroesophageal reflux disease) Code(s): K21.9 - Gastro-esophageal reflux disease without esophagitis Status: Acute - Plan This is a 68-year-old female patient with: Syncope at home History of petit mal seizures History of orthostatic blood pressure -Patient is status post syncope at home, LOC and hit her head. -Reports of 6 falls in the last 6 months. -Head CT on presentation does shoe evidence of posterior occiput scale hematoma. Cervical spine CT show no acute abnormality. Left shoulder x-ray is negative for fracture. -EKG reviewed and showing controlled heart rate with no ST changes to indicate any ischemia. -ECHO, carotid ultrasound and EEG are pending. -Continued on cardiac telemetry, monitor for any arrhythmias. -Will check orthostatic BPs. Follow. -Continue IVF to ensure hydration. -Patient still complaints of blurry vision which is different from her baseline. Will consult neurology, input and recommendations pending. Hypertension, chronic: Will continue home medications once orthostatic BPs obtained. Monitor for any lability or drop. Watch parameters antihypertensives and beta-alfredo. Recent urethral dilation on 08/14/18 -Patient underwent a urethral dilation yesterday with Dr. Alberto and was prescribed Cipro. Will continue. -May be a contributing factor to her syncope. Await neuro input. History of mycobacterium avium infection -Follows with her doctor in [place], last seen in the last month. -CTA was done due to elevated d-dimer and results are showing multiple focal inflammatory vs infectious changes. -Orders have been placed to obtain records from her doctor in [place] to compare. History of hyperlipidemia: Will continue home statin. DVT Prophylaxis: SCDs. (1) Syncope Qualifiers: Syncope type: unspecified Qualified Code(s): R55 - Syncope and collapse
[2018-08-15] MEDS: Pantoprazole Sodium 20 MG DR Tablet PO SCH (08:54)
[2018-08-15] MEDS: levETIRAcetam 500 MG Tablet PO SCH ×2 (08:55→21:25)
[2018-08-15] MEDS: Ciprofloxacin 500 MG Tablet PO SCH ×2 (08:55→21:25)
--- NOTE | 2018-08-15 10:13 | US ---
EXAM DATE: 08/15/2018 12:00 AM EDT AGE/SEX: 68 years / Female INDICATIONS: Syncope. CLINICAL DATA: This is the patient's initial encounter. Patient reports that signs and symptoms have been present for 1 day and indicates a pain score of 0/10. MEDICAL/SURGICAL HISTORY: Hypertension. Mycobacterium avium complex infection. Epilepsy. Hyst erectomy. Right hip replacement. Lung surgery. COMPARISON: No prior exams available for comparison. VELOCITY PARAMETERS: ICA/CCA Ratio: Right 1.3 , Left 1.1 ICA: Right 88 cm/sec, Left 77 cm/sec CCA: Right 70 cm/sec, Left 68 cm/sec ECA: Right 70 cm/sec, Left 59 cm/sec Vertebral: Right 69 cm/sec antegrade, Left 56 cm/sec antegrade FINDINGS: Right Carotid: Mild arteriosclerotic plaque is visualized.The waveforms are within normal limits. Left Carotid: Mild arteriosclerotic plaque is visualized. The waveforms are within normal limits. Other: None. CONCLUSION: 1. Right Internal Carotid Artery: No hemodynamically significant stenosis. 2. Left Internal Carotid Artery: No hemodynamically significant stenosis. Electronically signed by: Sylvester Baker MD 08/15/2018 10:11 AM EDT
--- NOTE | 2018-08-15 13:56 | MG ---
cc: Delio Benavides MD, PhD DATE OF STUDY: 08/15/2018 TEST NUMBER: [id number] TECHNIQUE: A 17-channel EEG. DESCRIPTION: The background rhythm reveals symmetrical alpha activity. Frequency 8 Hz. Amplitude is 20-30 microvolts. There are no lateralizing features. Photic stimulation results in a normal driving response. No epileptiform features are identified. There is rare muscle artifact present. During drowsiness, there is mild slowing in the theta range. INTERPRETATION: Normal electroencephalogram. Delio Benavides MD, PhD [id number]/sv , 01:41 PM , 01:47 PM
--- NOTE | 2018-08-15 15:32 | ECHRPT ---
Indication: Syncope CONCLUSIONS Normal left ventricular size. Wall thickness is measured at the upper limits of normal. The left ventricular systolic function is mildly reduced with an estimated ejection fraction in the range of 45- 50%. The left atrial size is upper limits of normal. Trace mitral valve regurgitation. There is trace tricuspid valve regurgitation. The estimated pulmonary arterial pressure is 23 mmHg. BP: / HR: Rhythm: MEASUREMENTS (Male / Female) Normal Values Technical Quality:Technically difficult study 2D ECHO LV Diastolic Diameter PLAX 5.2 cm 4.2 - 5.9 / 3.9 - 5.3 cm LV Systolic Diameter PLAX 3.8 cm IVS Diastolic Thickness 1.0 cm 0.6 - 1.0 / 0.6 - 0.9 cm LVPW Diastolic Thickness 0.9 cm 0.6 - 1.0 / 0.6 - 0.9 cm LV Relative Wall Thickness 0.4 RV Internal Dim ED PLAX 2.6 cm LVOT Diameter 1.9 cm Aortic Root Diameter 3.2 cm LA Systolic Diameter LX 3.8 cm 3.0 - 4.0 / 2.7 - 3.8 cm M-MODE AV Cusp Separation MM 1.8 cm DOPPLER AV Peak Velocity 139.0 cm/s AV Peak Gradient 7.7 mmHg LVOT Peak Velocity 79.5 cm/s LVOT Peak Gradient 2.5 mmHg AV Area Cont Eq pk 1.6 cm Mitral E Point Velocity 57.3 cm/s Mitral A Point Velocity 83.4 cm/s Mitral E to A Ratio 0.7 LV E' Lateral Velocity 10.4 cm/s Mitral E to LV E' Lateral Ratio 5.5 LV E' Septal Velocity 6.5 cm/s Mitral E to LV E' Septal Ratio 8.8 TR Peak Velocity 181.0 cm/s TR Peak Gradient 13.1 mmHg Right Atrial Pressure 10.0 mmHg Pulmonary Artery Systolic Pressu 23.1 mmHg Right Ventricular Systolic Press 23.1 mmHg PV Peak Velocity 82.8 cm/s PV Peak Gradient 2.7 mmHg FINDINGS LEFT VENTRICLE Normal left ventricular size. Wall thickness is measured at the upper limits of normal. The left ventricular systolic function is mildly reduced with an estimated ejection fraction in the range of 45- 50%. RIGHT VENTRICLE Normal right ventricular size and systolic function. LEFT ATRIUM The left atrial size is upper limits of normal. RIGHT ATRIUM The right atrial size is normal. ATRIAL SEPTUM Normal atrial septal thickness without atrial level shunting by limited color doppler interrogation. AORTA The aortic root and proximal ascending aorta are normal in size on limited imaging. MITRAL VALVE Trace mitral valve regurgitation. AORTIC VALVE Trileaflet aortic valve. TRICUSPID VALVE There is trace tricuspid valve regurgitation. The estimated pulmonary arterial pressure is 23 mmHg. PULMONARY VALVE No pulmonary valve regurgitation or stenosis. VESSELS The inferior vena cava is normal in size. PERICARDIUM No pericardial effusion. Luis Alberto Max MD, FACC, [facility] (Electronically Signed) Final Date:15 August 2018 15:31
--- NOTE | 2018-08-15 21:11 | ECG ---
Date Performed: 08/14/2018 Time Performed: 22:15:43 PTAGE: 68 years EKG: Sinus rhythm MODERATE INTRAVENTRICULAR CONDUCTION DELAY MINIMAL ST DEPRESSION ABNORMAL ECG NO PREVIOUS TRACING DOCTOR: Tima Nunn Interpretating Date/Time 08/15/2018 21:09:27
--- NOTE | 2018-08-15 22:29 | MB ---
cc: Delio Benavides MD, PhD DATE: 08/15/2018 REASON FOR CONSULTATION: Syncope. HISTORY OF PRESENT ILLNESS: Ms. 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 She has a history of orthostatic hypotension as well. Yesterday, she was reading a book on a couch, she got up and walked to the kitchen and had an episode where she lost consciousness. She was out for several minutes, found herself on the floor. Following this, she was somewhat confused most of the day. Her seizures have been stable. No seizures for 2 years. PAST MEDICAL HISTORY: She has a history of seizures, orthostatic hypotension, GERD, hysterectomy. MEDICATIONS: 1. Tylenol. 1. Cipro. 2. Colace. 3. Keppra 1000 mg b.i.d. 4. She takes Aptiom 800 mg daily. 5. Midodrine 5 mg t.i.d. 6. Pravastatin. 7. Zofran. NEUROLOGICAL EXAMINATION: Supine blood pressure 105/70, standing 76/59. High cortical functions are normal. Cranial nerves intact. Motor exam: Normal strength and tone of all groups. There is no drift. Reflexes are symmetric. IMAGING STUDIES: CT brain is normal. There is a scalp hematoma from the fall, likely. Carotid ultrasound is normal with no significant stenosis. Echocardiogram: EF is 45-50%. Left atrial size upper limits of normal, trace mitral valve regurgitation, trace tricuspid regurgitation. LABORATORY DATA: White count 5800, hemoglobin 13.7, hematocrit 40%, platelet count 237,000. PT 10, INR 1, aPTT 23.8. Sodium 133, potassium 3.4, chloride 98, CO2 24, BUN 16, creatinine 0.85, GFR 66, glucose 94. IMPRESSION: Syncope related to orthostatic hypotension. RECOMMENDATION: I agree with a trial of midodrine. I doubt this a seizure. Delio Benavides MD, PhD YUMIKO/michael , 09:43 PM , 09:49 PM
[2018-08-16] MEDS: Acetaminophen 325 MG Tablet PO PRN ×2 (00:17→06:34)
[2018-08-16 06:55] LABS: Baso # (Auto) 0.1 th/mm3 (0.0-0.2); Baso % (Auto) 1.2 % (0.0-2.0); Eos # (Auto) 0.1 th/mm3 (0.0-0.4); Eos % (Auto) 1.6 % (0.0-4.0); Hematocrit 38.8 % (35.0-46.0); Hemoglobin 13.8 gm/dL (11.6-15.3); Lymph # (Auto) 1.8 th/mm3 (1.0-4.8); Lymph % (Auto) 42.9 % (9.0-44.0); Mean Corpuscular HGB Conc 35.5 % (32.0-36.0); Mean Corpuscular Hemoglobin 37.4 pg (27.0-34.0); Mean Corpuscular Volume 105.3 fL (80.0-100.0); Mean Platelet Volume 7.6 fL (7.0-11.0); Mono # (Auto) 0.4 th/mm3 (0.0-0.9); Mono % (Auto) 10.1 % (0.0-8.0); Neut # (Auto) 1.8 th/mm3 (1.8-7.7); Neut % (Auto) 44.2 % (16.0-70.0); Platelet Count 196 th/mm3 (150-450); Red Blood Count 3.69 mil/mm3 (4.00-5.30); Red Cell Distribution Width 12.2 % (11.6-17.2); White Blood Count 4.2 th/mm3 (4.0-11.0)
--- NOTE | 2018-08-16 08:26 | P.PNIM ---
Subjective Interval history: Follow-up syncope at home and dizziness. Patient seen and examined, lying in bed severely dizzy. Tech at bedside attempted orthostatic blood pressure checks this morning upon standing patient became severely dizzy and had to lay down. Patient is sitting in bed with blood pressure with systolic in the 170s. Patient has actually been able to eat without any nausea or vomiting. Denies any chest pain, shortness of breath abdominal pain. We will continue to monitor blood pressure trends. Physical Exam Vital signs: Vital Signs 08/15/18 09:00 08/15/18 12:00 08/15/18 14:05 Temperature 97.7 F Pulse Rate 87 68 80 Respiratory Rate 20 Blood Pressure 105/70 105/81 Pulse Oximetry 97 98 08/15/18 14:10 08/15/18 15:36 08/15/18 20:00 Temperature 98.6 F 98.8 F Pulse Rate 89 71 70 Respiratory Rate 20 20 Blood Pressure 76/59 L 118/77 104/78 Pulse Oximetry 99 98 97 08/16/18 00:00 08/16/18 04:00 Temperature 98.7 F 96.3 F L Pulse Rate 68 69 Respiratory Rate 20 20 Blood Pressure 97/65 L 116/73 Pulse Oximetry 97 99 Intake & Output 08/15/18 08/16/18 08/16/18 18:59 06:59 18:59 Intake Total 1360 / 1360 Balance 1360 / 1360 Weight 75.4 kg Intake: IV 1000 / 1000 Oral 360 / 360 Other: # Voids 5 2 Results - Labs CBC & Chem 7: 08/16/18 06:33 08/15/18 05:15 Laboratory Results - last 24 hr 08/16/18 06:33 CBC w Diff Auto diff final WBC 4.2 RBC 3.69 L Hgb 13.8 Hct 38.8 MCV 105.3 H MCH 37.4 H MCHC 35.5 RDW 12.2 Plt Count 196 MPV 7.6 Neut % (Auto) 44.2 Lymph % (Auto) 42.9 Noble % (Auto) 10.1 H Eos % (Auto) 1.6 Baso % (Auto) 1.2 Neut # (Auto) 1.8 Lymph # (Auto) 1.8 Noble # (Auto) 0.4 Eos # (Auto) 0.1 Baso # (Auto) 0.1 WBC Differential . Differential Comment . - Imaging Impressions Carotid Doppler Study 08/15/18 00:00 CONCLUSION: 1. Right Internal Carotid Artery: No hemodynamically significant stenosis. 2. Left Internal Carotid Artery: No hemodynamically significant stenosis. Assessment and Plan - Assessment (1) Syncope Code(s): R55 - Syncope and collapse Status: Acute (2) History of epilepsy Code(s): Z86.69 - Personal history of other diseases of the nervous system and sense organs Status: Acute (3) Mycobacterium avium complex Code(s): A31.0 - Pulmonary mycobacterial infection Status: Acute (4) Hypertension Code(s): I10 - Essential (primary) hypertension Status: Acute (5) Hyperlipidemia Code(s): E78.5 - Hyperlipidemia, unspecified Status: Acute (6) GERD (gastroesophageal reflux disease) Code(s): K21.9 - Gastro-esophageal reflux disease without esophagitis Status: Acute - Plan This is a 68-year-old female patient with: Syncope at home Orthostatic hypotension History of petit mal seizures History of orthostatic hypotension -Patient is status post syncope at home, LOC and hit her head. -Reports of 6 falls in the last 6 months. -Head CT on presentation does shoe evidence of posterior occiput scale hematoma. Cervical spine CT show no acute abnormality. Left shoulder x-ray is negative for fracture. -EKG reviewed and showing controlled heart rate with no ST changes to indicate any ischemia. -ECHO consulted with adequate EF. No significant findings. Carotid ultrasound reviewed with no significant findings. EEG remarkable. -Continued on cardiac telemetry, monitor for any arrhythmias. No arrhythmias overnight. -Orthostatic blood pressures positive. Added Midodrine yesterday. Neurology was consulted, appreciate input recommendations. Awaiting MRI today. -This morning while attempting orthostatic blood pressures patient became severely dizzy and unable to stand up. Blood pressure is elevated this morning with systolic in the 180s. Adjusting Midodrine dose. -Will continue to monitor blood pressure closely. Added meclizine for dizziness. Hypertension, chronic: Orthostatics positive. On Midodrine. Home medications held at this time. Recent urethral dilation on 08/14/18 -Patient underwent a urethral dilation yesterday with Dr. Alberto and was prescribed Cipro. Will continue. History of mycobacterium avium infection -Follows with her doctor in [place], last seen in the last month. -CTA was done due to elevated d-dimer and results are showing multiple focal inflammatory vs infectious changes. -Orders have been placed to obtain records from her doctor in [place] to compare. Awaiting records. History of hyperlipidemia: Will continue home statin. DVT Prophylaxis: SCDs. Discharge Planning: Awaiting clinical improvement. MRI today. (1) Syncope Qualifiers: Syncope type: unspecified Qualified Code(s): R55 - Syncope and collapse
[2018-08-16] MEDS: Pantoprazole Sodium 20 MG DR Tablet PO SCH (08:40)
[2018-08-16] MEDS: Ciprofloxacin 500 MG Tablet PO SCH ×3 (08:40→20:40)
[2018-08-16] MEDS: levETIRAcetam 500 MG Tablet PO SCH ×3 (08:40→20:40)
[2018-08-16] MEDS ORDERED: ESLICARBAZEPINE 800 MG PO SCH (09:00)
--- NOTE | 2018-08-16 09:50 | MR ---
EXAM DATE: 08/16/2018 9:02 AM EDT AGE/SEX: 68 years / Female INDICATIONS: CVA. Dizziness for two days. Recent syncope and head trauma CLINICAL DATA: This is the patient's initial encounter. Patient reports that signs and symptoms have been present for 2 days and indicates a pain score of 0/10. MEDICAL/SURGICAL HISTORY: Hypertension. Epilepsy. Hysterectomy. Hip replacement. COMPARISON: No prior exams available for comparison. TECHNIQUE: Multiplanar, multisequence examination of the brain was performed without contrast. FINDINGS: Cerebrum: The ventricles are normal for age. No evidence of midline shift, mass lesion, hemorrhage or acute infarction. No extraaxial fluid collections are seen. The pituitary gland and suprasellar cistern are normal in configuration. White Matter: No significant signal abnormalities are seen in the white matter. Mild chronic small v essel ischemic changes are present. Posterior Fossa: The cerebellum and brainstem are intact. The 4th ventricle is midline. The cerebel lopontine angle is unremarkable. The cerebellar tonsils are normal in position. Diffusion Imaging: No focal areas of restricted diffusion are seen. No evidence of acute infarction . Extracranial: The visualized portions of the orbits and paranasal sinuses are unremarkable. Soft tis grant swelling is again noted over the high left occipital bone. CONCLUSION: 1. Soft tissue swelling again noted over the high left occipital bone. 2. No evidence of hemorrhage or edema. 3. Mild atrophy and chronic small vessel ischemic change. Electronically signed by: Alvaro Piña MD 08/16/2018 9:49 AM EDT
--- NOTE | 2018-08-17 08:08 | P.DS ---
Date of admission: 08/15/18 00:27 Primary care physician: Toño Naqvi MD Brief History from admission: This is a pleasant 68-year-old female patient with a known medical history of hypertension, history of seizures, hyperlipidemia, GERD and Mycobacterium avium complex infection who presented to the ED status post syncopal episode at home. Patient states that yesterday she was at home alone her was out with his friends and she had gotten up out of the chair after reading and as she was getting a glass of water at the refrigerator she felt dizzy and later found herself on the floor. Patient does state she lost consciousness as well as hitting her head on the granite countertop, she is unaware of the duration of time she was unconscious. She does state that she hit the back of her head as well as the front of her forehead. She admits to a history of epilepsy, states she has not had a seizure for over 2 years now. Is [facility], follows with a doctor in [place] for her seizures. Patient denies any incontinence of stool or urine after syncopal episode. She does admit that she is fallen at least once a month for the past 6 months, she states that usually she passes out after having blurry vision and dizziness as well as instability on her feet. It should be noted that patient did undergo a right hip replacement last September and since that time patient has been having trouble with ambulation as well as weakness and pain in the right hip area. Patient also does have a history of Mycobacterium avium complex infection, follows with a doctor in [place], she just recently returned from a [address] trip with her . She also follows with Dr. Alberto, urology and yesterday underwent a urethral dilation. Patient denies any recent illness including fever, chills, cough, shortness of breath, dumping, nausea, vomiting, diarrhea or dysuria. She does admit to compliance with her medications. She does admit to a history of orthostatic hypotension, she is very aware of getting up slowly from her chair and from sitting position. Denies any new changes to her medicines. Does admit to some confusion yesterday which has resolved upon assessment today. She does admit that her vision is continue to be blurry but has improved slightly. Patient update on day of discharge: Patient seen and examined, lying in bed comfortably in nad. Dizziness resolved. No reports of any events overnight. VSS. Afebrile. DS: Diagnosis - Discharge Diagnosis (1) Syncope Status: Acute (2) History of epilepsy Status: Acute (3) Mycobacterium avium complex Status: Acute (4) Hypertension Status: Acute (5) Hyperlipidemia Status: Acute (6) GERD (gastroesophageal reflux disease) Status: Acute DS: Medications - Discharge Medications Prescriptions: meclizine 25 mg PO Q6H PRN 30 Days tab PRN Reason: Dizziness midodrine 5 mg PO BID@0700,1700 30 Days tab DS: Summary Hospital Course: This is a 68-year-old female patient with syncope at home history of orthostatic hypotension, history of petit mal seizures and history of orthostatic hypotension. Patient is status post syncope at home, LOC and hit her head. Reports of 6 falls in the last [address] on presentation does shoe evidence of posterior occiput scale hematoma. Cervical spine CT show no acute abnormality. Left shoulder x-ray is negative for fracture. EKG reviewed and showing controlled heart rate with no ST changes to indicate any ischemia. ECHO consulted with adequate EF. No significant findings. Carotid ultrasound reviewed with no significant findings. EEG remarkable. Continue on cardiac tele , no arrhythmias. Orthostatic blood pressures positive. Added Midodrine yesterday. Neurology was consulted, agreed with midodrine. MRI showing no acute event, showing a subq hematoma. Has a history of hypertension, chronic. Orthostatics positive. On Midodrine. Home medications held and stopped prior to DC. Will have patient keep a journal and diary, take rx midodrine and follow up with PCP and optical manager. Patient's orthostatic blood pressures are significantly positive. She does have a recent urethral dilation on 08/14/18, Patient underwent a urethral dilation yesterday with Dr. Alberto and was prescribed Cipro. Completed dose during hospitalization. History of mycobacterium avium infection. Follows with her doctor in [place], last seen in the last month. CTA was done due to elevated d-dimer and results are showing multiple focal inflammatory vs infectious changes. History of hyperlipidemia: Will continue home statin. Patient stable on day of discharge. Overall feeling improved and at baseline. Tolerating activity and ambulation. VSS. No dizziness. New rx meclizine and midodrine. Patient stable and agrees to follow up with PCP and optical manager. - Time Spent with Patient Total time spent providing and/or coordinating discharge services: Greater than 30 minutes - Quality: VTE Deep Vein Thrombosis/Pulmonary Embolism Present on Admission: No Exam Vital signs: Vital Signs 08/16/18 12:00 08/16/18 16:00 08/16/18 20:00 Temperature 98.5 F 96.1 F L 98.2 F Pulse Rate 61 62 72 Respiratory Rate 20 20 16 Blood Pressure 127/79 115/72 116/66 Pulse Oximetry 98 97 97 08/17/18 00:00 Temperature 98.2 F Pulse Rate 70 Respiratory Rate 16 Blood Pressure 120/68 Pulse Oximetry 97 Intake & Output 08/16/18 08/17/18 08/17/18 18:59 06:59 18:59 Intake Total 600 / 600 Balance 600 / 600 Weight 76.9 kg Intake: Oral 600 / 600 Other: # Voids 1 Date of Last Bowel Movement 08/15/18 08/15/18 - Constitutional no acute distress - Routine HEENT Exam Head: Present: normocephalic Eye: Present: EOMI, PERRL ENT: Present: mucous membranes moist - Routine Neck Exam Present: supple - Routine Respiratory Exam Present: accessory muscle use - Routine Abdominal Exam Present: soft - Routine Skin Exam Present: intact - Routine Neurological Exam Present: alert, oriented X3 Results Procedures completed during hospitalization: See below. - Impressions ITS Impressions Cervical Spine CT 08/14/18 22:04 CONCLUSION: 1. No acute fracture or subluxation. 2. Multilevel degenerative spondylosis and multilevel facet arthropathy. Head CT 08/14/18 22:04 CONCLUSION: 1. No bleed or other acute intracranial abnormality. 2. Left posterior parietal scalp hematoma. No fracture. . Shoulder X-Ray 08/14/18 22:05 CONCLUSION: Intact left shoulder. Carotid Doppler Study 08/15/18 00:00 CONCLUSION: 1. Right Internal Carotid Artery: No hemodynamically significant stenosis. 2. Left Internal Carotid Artery: No hemodynamically significant stenosis. Chest CTA 08/15/18 00:01 CONCLUSION: 1. No CT evidence for pulmonary artery embolism as questioned. 2. Multiple focal nodular or nearly nodular parenchymal opacities bilaterally, as above. Suspect these are infectious/inflammatory in etiology and are consistent with history of ANDIE. Recommend follow-up examination in 3 months to document resolution/stability. Head MRI 08/16/18 00:00 CONCLUSION: 1. Soft tissue swelling again noted over the high left occipital bone. 2. No evidence of hemorrhage or edema. 3. Mild atrophy and chronic small vessel ischemic change. Discharge Plan - Discharge Disposition Patient Disposition: 01 Discharge Home - Discharge Condition Condition: Stable - Discharge Order Discharge Orders: Discharge Order (Routine); Ordered 08/17/18 Ordered By: Sita Wang - Discharge Details Anticipated Discharge Date: 08/17/18 - Physicians Team Primary Care Provider: Toño Naqvi Attending Provider: Spike Henao Other Providers: Delio Benavides MD, PhD
[2018-08-17] MEDS: levETIRAcetam 500 MG Tablet PO SCH (08:14)
[2018-08-17] MEDS: Ciprofloxacin 500 MG Tablet PO SCH (08:14)
[2018-08-17] MEDS: Pantoprazole Sodium 20 MG DR Tablet PO SCH (08:15)
[2018-08-17 08:59] VITALS: BP 169/77; PULSE 61; RESP 18; TEMP 97.5; O2SAT 98
== END 2018-08-17 09:59 | disposition home or self-care (01) ==
LOC: PHED 21:34 → PHEDA 21:34 → PH3 08-15 01:25
PROVIDERS: ADMIT Internal Medicine; ATTEND Internal Medicine